=== PATIENT | male | born 1985 | race American Indian/Alaskan Native ===

== ENCOUNTER 2021-06-07 10:35 | Inpatient (IN) | payer OTHER ==
[2021-06-07] MEDS ORDERED: MORPHINE 4 MG/1 ML INJ IV ONE (11:58)
[2021-06-07] MEDS ORDERED: hydrALAZINE 20 MG/1 ML INJ IV ONE (11:58)
--- NOTE | 2021-06-07 12:05 | Emergency Department Report ---
HPI - General Chief Complaint: Weakness Time Seen by Provider: 06/07/21 11:51 - HPI HPI: This is a 35-year-old -[place]ong[place] male presents to the emergency department via EMS from home with complaint of generalized pain, generalized weakness and fatigue, and some shortness of breath. The patient is end-stage renal disease on hemodialysis on Thursday/Thursday/Thursday but admits to some noncompliance as he says that he does not have the "money to get to dialysis." Patient has missed multiple dialysis sessions and was last dialyzed at [facility] last week. The patient also has a history of diabetes and admits to noncompliance with his insulin. He had an Accu-Chek in route with EMS that was 308. Overall the patient says that he feels "sick" and describes that he has a "cold." He denies any fever, chest pain, lower extremity swelling. He has a right-sided chest port for dialysis access. He has not taken anything for symptoms prior to presentation. The patient says that he takes morphine regularly for his chronic back pains. He says that he gets dialyzed occasionally at [facility], [facility]. 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 Upon presentation to the emergency department, the patient was found to have a room air pulse ox of 82%. He was placed on 4 L via nasal cannula and went up to 94%. The patient is vaccinated against COVID-19 with the [employer] vaccine, but just got the vaccine two days ago. ED Review of Systems ROS: Stated complaint: COUGH/FLU LIKE SX/MISSED DIALYSIS Other details as noted in HPI Comment: All other systems reviewed and negative Constitutional: weakness. denies: fever Eyes: denies: eye pain, vision change ENT: denies: ear pain, throat pain Respiratory: cough, shortness of breath Cardiovascular: denies: chest pain, edema Gastrointestinal: denies: abdominal pain, vomiting Genitourinary: denies: dysuria, discharge Skin: denies: rash, lesions Neurological: denies: headache, numbness Physical Exam - Physical Exam Vital Signs: Vital Signs 06/07/21 11:01 Temperature 97.5 F L Pulse Rate 95 H Respiratory 20 Rate Blood Pressure 223/135 [Left] O2 Sat by Pulse 94 Oximetry Physical Exam: GENERAL: The patient is well-developed well-nourished. HENT: Normocephalic. Atraumatic. Patient has moist mucous membranes. EYES: Extraocular motions are intact. NECK: Supple. Trachea is midline. CHEST/LUNGS: Rhonchi heard throughout the chest. There is tachypnea and a productive sounding cough heard. There is a right-sided dialysis chest catheter in place. HEART/CARDIOVASCULAR: Regular. There is no tachycardia. There is no murmur. ABDOMEN: Abdomen is soft, nontender. Patient has normal bowel sounds. There is no abdominal distention. SKIN: Skin is warm and dry. NEURO: The patient is awake, alert, and oriented. The patient is cooperative. The patient has no focal neurologic deficits. Normal speech. MUSCULOSKELETAL: There is no tenderness or deformity. There is no limitation range of motion. ED Course Vital Signs 06/07/21 11:01 Temperature 97.5 F L Pulse Rate 95 H Respiratory 20 Rate Blood Pressure 223/135 [Left] O2 Sat by Pulse 94 Oximetry - Reevaluation(s) Reevaluation #1: 06/07/21 12:24 With the patient's complaint of a cold/upper respiratory symptoms, the hypoxia, and the chest x-ray showing some bilateral patchy opacities, the patient will be made a PUI and placed on droplet precautions and patient isolation. The chest x-ray findings may also be consistent with interstitial edema. The patient is vaccinated against COVID-19, but it is the [employer]hu [employer] Madhu vaccine. - Consultations Consultation #1: 06/07/21 12:54 I spoke to the engineering vice president on-call, Dr. Juarez. She will be happy to consult on this patient for dialysis. - Pulse Oximetry Interpretation Digit-Finger Initial Pulse Oximetry Readin O2 Sat by Pulse Oximetry: 82 Actions Taken: increased FIO2 to (5 L NC) Additional Comments: Oxygen saturation went up to 95% when placed on supplemental oxygen at 5 L via nasal cannula ED Medical Decision Making - Lab Data Result diagrams: 06/07/21 12:05 06/07/21 12:05 Lab Results 06/07/21 06/07/21 06/07/21 Range/Units 12:05 12:05 12:05 WBC 9.7 (4.5-11.0) K/mm3 RBC 3.18 L (3.65-5.03) M/mm3 Hgb 7.4 L (11.8-15.2) gm/dl Hct 23.9 L (35.5-45.6) % MCV 75 L (84-94) fl MCH 23 L (28-32) pg MCHC 31 L (32-34) % RDW 20.0 H (13.2-15.2) % Add Manual Diff Complete Total Counted 100 Seg Neuts % (Manual) 77.0 H (40.0-70.0) % Lymphocytes % (Manual) 15.0 (13.4-35.0) % Monocytes % (Manual) 5.0 (0.0-7.3) % Eosinophils % (Manual) 2.0 (0.0-4.3) % Basophils % (Manual) 1.0 (0.0-1.8) % Nucleated RBC % Not Reportable Seg Neutrophils # Man 7.5 (1.8-7.7) K/mm3 Band Neutrophils # 0.0 K/mm3 Lymphocytes # (Manual) 1.5 (1.2-5.4) K/mm3 Abs React Lymphs (Man) 0.0 K/mm3 Monocytes # (Manual) 0.5 (0.0-0.8) K/mm3 Eosinophils # (Manual) 0.2 (0.0-0.4) K/mm3 Basophils # (Manual) 0.1 (0.0-0.1) K/mm3 Metamyelocytes # 0.0 K/mm3 Myelocytes # 0.0 K/mm3 Promyelocytes # 0.0 K/mm3 Blast Cells # 0.0 K/mm3 WBC Morphology Not Reportable Hypersegmented Neuts Not Reportable Hyposegmented Neuts Not Reportable Hypogranular Neuts Not Reportable Smudge Cells Not Reportable Toxic Granulation Not Reportable Toxic Vacuolation Not Reportable Dohle Bodies Not Reportable Pelger-Huet Anomaly Not Reportable Nathan Rods Not Reportable Platelet Estimate Consistent w auto Clumped Platelets Not Reportable Plt Clumps, EDTA Not Reportable Large Platelets Not Reportable Giant Platelets Not Reportable Platelet Satelliting Not Reportable Plt Morphology Comment Not Reportable RBC Morphology Not Reportable Dimorphic RBCs Not Reportable Polychromasia Few Hypochromasia 2+ Poikilocytosis 2+ Anisocytosis Not Reportable Microcytosis 1+ Macrocytosis Not Reportable Spherocytes Few Pappenheimer Bodies Not Reportable Sickle Cells Few Target Cells 1+ Tear Drop Cells Not Reportable Ovalocytes Not Reportable Helmet Cells Not Reportable Cheek-Confluence Bodies Not Reportable [place] Rings Not Reportable Candelario Cells Not Reportable Bite Cells Not Reportable Crenated Cell Not Reportable Elliptocytes Not Reportable Acanthocytes (Spur) Not Reportable Rouleaux Not Reportable Hemoglobin C Crystals Not Reportable Schistocytes Not Reportable Malaria parasites Not Reportable Niranjan Bodies Not Reportable Hem Pathologist Commnt No PT (12.2-14.9) Sec. INR (0.87-1.13) D-Dimer (0-234) ng/mlDDU VBG pH (7.320-7.420) Sodium 140 (137-145) mmol/L Potassium 5.6 H (3.6-5.0) mmol/L Chloride 99.5 (98-107) mmol/L Carbon Dioxide 24 (22-30) mmol/L Anion Gap 22 mmol/L BUN 75 H (9-20) mg/dL Creatinine 11.5 H (0.8-1.3) mg/dL Estimated GFR 6 ml/min BUN/Creatinine Ratio 7 % Glucose 306 H (75-100) mg/dL Calcium 7.0 L (8.4-10.2) mg/dL Ferritin (30.0-300.0) ng/mL Total Bilirubin 0.30 (0.1-1.2) mg/dL AST 64 H (5-40) units/L ALT 76 H (7-56) units/L Alkaline Phosphatase 402 H (35-129) units/L Lactate Dehydrogenase (91-180) units/L C-Reactive Protein (0.00-1.30) mg/dL NT-Pro-B Natriuret Pep 80988 H (0-450) pg/mL Total Protein 6.9 (6.3-8.2) g/dL Albumin 3.7 L (3.9-5) g/dL Albumin/Globulin Ratio 1.2 % 06/07/21 06/07/21 06/07/21 Range/Units 12:05 12:05 12:26 WBC (4.5-11.0) K/mm3 RBC (3.65-5.03) M/mm3 Hgb (11.8-15.2) gm/dl Hct (35.5-45.6) % MCV (84-94) fl MCH (28-32) pg MCHC (32-34) % RDW (13.2-15.2) % Add Manual Diff Total Counted Seg Neuts % (Manual) (40.0-70.0) % Lymphocytes % (Manual) (13.4-35.0) % Monocytes % (Manual) (0.0-7.3) % Eosinophils % (Manual) (0.0-4.3) % Basophils % (Manual) (0.0-1.8) % Nucleated RBC % Seg Neutrophils # Man (1.8-7.7) K/mm3 Band Neutrophils # K/mm3 Lymphocytes # (Manual) (1.2-5.4) K/mm3 Abs React Lymphs (Man) K/mm3 Monocytes # (Manual) (0.0-0.8) K/mm3 Eosinophils # (Manual) (0.0-0.4) K/mm3 Basophils # (Manual) (0.0-0.1) K/mm3 Metamyelocytes # K/mm3 Myelocytes # K/mm3 Promyelocytes # K/mm3 Blast Cells # K/mm3 WBC Morphology Hypersegmented Neuts Hyposegmented Neuts Hypogranular Neuts Smudge Cells Toxic Granulation Toxic Vacuolation Dohle Bodies Pelger-Huet Anomaly Nathan Rods Platelet Estimate Clumped Platelets Plt Clumps, EDTA Large Platelets Giant Platelets Platelet Satelliting Plt Morphology Comment RBC Morphology Dimorphic RBCs Polychromasia Hypochromasia Poikilocytosis Anisocytosis Microcytosis Macrocytosis Spherocytes Pappenheimer Bodies Sickle Cells Target Cells Tear Drop Cells Ovalocytes Helmet Cells Cheek-Confluence Bodies [place] Rings Brandon Cells Bite Cells Crenated Cell Elliptocytes Acanthocytes (Spur) Rouleaux Hemoglobin C Crystals Schistocytes Malaria parasites Niranjan Bodies Hem Pathologist Commnt PT 14.6 (12.2-14.9) Sec. INR 1.09 (0.87-1.13) D-Dimer 2303.03 H (0-234) ng/mlDDU VBG pH 7.327 (7.320-7.420) Sodium (137-145) mmol/L Potassium (3.6-5.0) mmol/L Chloride (98-107) mmol/L Carbon Dioxide (22-30) mmol/L Anion Gap mmol/L BUN (9-20) mg/dL Creatinine (0.8-1.3) mg/dL Estimated GFR ml/min BUN/Creatinine Ratio % Glucose (75-100) mg/dL Calcium (8.4-10.2) mg/dL Ferritin (30.0-300.0) ng/mL Total Bilirubin (0.1-1.2) mg/dL AST (5-40) units/L ALT (7-56) units/L Alkaline Phosphatase (35-129) units/L Lactate Dehydrogenase (91-180) units/L C-Reactive Protein (0.00-1.30) mg/dL NT-Pro-B Natriuret Pep (0-450) pg/mL Total Protein (6.3-8.2) g/dL Albumin (3.9-5) g/dL Albumin/Globulin Ratio % 06/07/21 06/07/21 Range/Units 12:26 12:26 WBC (4.5-11.0) K/mm3 RBC (3.65-5.03) M/mm3 Hgb (11.8-15.2) gm/dl Hct (35.5-45.6) % MCV (84-94) fl MCH (28-32) pg MCHC (32-34) % RDW (13.2-15.2) % Add Manual Diff Total Counted Seg Neuts % (Manual) (40.0-70.0) % Lymphocytes % (Manual) (13.4-35.0) % Monocytes % (Manual) (0.0-7.3) % Eosinophils % (Manual) (0.0-4.3) % Basophils % (Manual) (0.0-1.8) % Nucleated RBC % Seg Neutrophils # Man (1.8-7.7) K/mm3 Band Neutrophils # K/mm3 Lymphocytes # (Manual) (1.2-5.4) K/mm3 Abs React Lymphs (Man) K/mm3 Monocytes # (Manual) (0.0-0.8) K/mm3 Eosinophils # (Manual) (0.0-0.4) K/mm3 Basophils # (Manual) (0.0-0.1) K/mm3 Metamyelocytes # K/mm3 Myelocytes # K/mm3 Promyelocytes # K/mm3 Blast Cells # K/mm3 WBC Morphology Hypersegmented Neuts Hyposegmented Neuts Hypogranular Neuts Smudge Cells Toxic Granulation Toxic Vacuolation Dohle Bodies Pelger-Huet Anomaly Nathan Rods Platelet Estimate Clumped Platelets Plt Clumps, EDTA Large Platelets Giant Platelets Platelet Satelliting Plt Morphology Comment RBC Morphology Dimorphic RBCs Polychromasia Hypochromasia Poikilocytosis Anisocytosis Microcytosis Macrocytosis Spherocytes Pappenheimer Bodies Sickle Cells Target Cells Tear Drop Cells Ovalocytes Helmet Cells Cheek-Confluence Bodies [place] Rings Candelario Cells Bite Cells Crenated Cell Elliptocytes Acanthocytes (Spur) Rouleaux Hemoglobin C Crystals Schistocytes Malaria parasites Niranjan Bodies Hem Pathologist Commnt PT (12.2-14.9) Sec. INR (0.87-1.13) D-Dimer (0-234) ng/mlDDU VBG pH (7.320-7.420) Sodium (137-145) mmol/L Potassium (3.6-5.0) mmol/L Chloride (98-107) mmol/L Carbon Dioxide (22-30) mmol/L Anion Gap mmol/L BUN (9-20) mg/dL Creatinine (0.8-1.3) mg/dL Estimated GFR ml/min BUN/Creatinine Ratio % Glucose (75-100) mg/dL Calcium (8.4-10.2) mg/dL Ferritin 444.0 H (30.0-300.0) ng/mL Total Bilirubin (0.1-1.2) mg/dL AST (5-40) units/L ALT (7-56) units/L Alkaline Phosphatase (35-129) units/L Lactate Dehydrogenase 585 H (91-180) units/L C-Reactive Protein 3.80 H (0.00-1.30) mg/dL NT-Pro-B Natriuret Pep (0-450) pg/mL Total Protein (6.3-8.2) g/dL Albumin (3.9-5) g/dL Albumin/Globulin Ratio % - EKG Data -: EKG Interpreted by Ak EKG shows normal: sinus rhythm, axis, intervals, QRS complexes, ST-T waves Rate: normal - EKG Data When compared to previous EKG there are: previous EKG unavailable Interpretation: normal EKG - Radiology Data Radiology results: image reviewed interpreted by me: Chest x-ray shows bilateral patchy opacities concerning for pneumonia, but may also represent interstitial edema. No pneumothorax. No widened mediastinum. - Medical Decision Making This patient presents to the emergency department with a complaint of intermittent shortness of breath, weakness and fatigue and a productive cough. On presentation the patient has a room air pulse ox of about 82%. He was placed on 5 L via nasal cannula and went up to about 95%. Chest x-ray shows bilateral patchy opacities concerning for pneumonia versus interstitial edema. EKG does not have any morphology consistent with ST elevation myocardial infarction. The patient's labs shows hyperkalemia with potassium 5.6, end-stage renal disease with some development of with some development of uremia, a very elevated proBNP, and the patient has elevated inflammatory markers such as LDH, D-dimer, CRP, ferritin. Patient was given IV Decadron, IV antibiotics. The patient was just vaccinated against COVID-19 about 2 days ago and therefore is not at full protection. With the hypoxia, chest x-ray findings, and his symptoms, the patient is also suspicious for having developed COVID-19. He was made a PUI and placed in droplet precautions and patient isolation. Nephrology was contacted and consulted. Patient was accepted for admission by the hospitalist, Dr. Ho. Critical Care Time: Yes Critical care time in (mins) excluding proc time.: 35 Critical care attestation.: If time is entered above; I have spent that time in minutes in the direct care of this critically ill patient, excluding procedure time. Critical care time was spent on this patient in doing his initial evaluation, multiple reevaluations, ordering interpretation of labs and imaging, IV Decadron, IV antibiotics, supplemental oxygen for the hypoxia, discussion with the nephrology service, multiple discussions with the patient. Critical Care Time: 35 minutes ED Disposition Clinical Impression: Suspected COVID-19 virus infection, Hypoxia, ESRD needing dialysis, Hyperglycemia Bilateral pneumonia Qualifiers: Pneumonia type: due to unspecified organism Lung location: unspecified part of lung Qualified Code(s): J18.9 - Pneumonia, unspecified organism Disposition: OP ADMIT IP TO THIS HOSP Is pt being admited?: Yes Condition: Serious Time of Disposition: 13:09
[2021-06-07 12:21] LABS: Hematocrit 23.9 % (35.5-45.6); Hemoglobin 7.4 gm/dl (11.8-15.2); Mean Corpuscular HGB Conc 31 % (32-34); Mean Corpuscular Volume 75 fl (84-94); Red Blood Count 3.18 M/mm3 (3.65-5.03)
--- NOTE | 2021-06-07 12:38 | XRay Report ---
CHEST 1 VIEW 06/07/2021 11:18 AM INDICATION / CLINICAL INFORMATION: SOB. COMPARISON: None available. FINDINGS: SUPPORT DEVICES: Right Vas-Cath is satisfactory in position HEART / MEDIASTINUM: No significant abnormality. LUNGS / PLEURA: Diffuse bilateral pulmonary opacities No pneumothorax. ADDITIONAL FINDINGS: No significant additional findings. IMPRESSION: Diffuse bilateral pulmonary opacities Signer Name: Ranulfo Hill MD Signed: 06/07/2021 12:33 PM Workstation Name: [id number]
[2021-06-07 12:39] LABS: Albumin 3.7 g/dL (3.9-5)
[2021-06-07 12:46] LABS: INR 1.09 (0.87-1.13)
[2021-06-07] MEDS ORDERED: cefTRIAXone/NS 1 GM/50 ML 1 GM/50 ML BAG IV ONE (12:56)
[2021-06-07] MEDS ORDERED: dexAMETHasone 4 MG/ML VIAL IV ONE (12:56)
[2021-06-07] MEDS ORDERED: AZITHROMYCIN/NS 500 MG/250 ML 500 MG/250 ML BAG IV ONE (12:57)
[2021-06-07 13:03] LABS: C-Reactive Protein 3.8 mg/dL (0.00-1.30)
[2021-06-07 15:02] LABS: Total Cells Counted 100
[2021-06-07 15:03] LABS: Hypochromasia 2+; Poikilocytosis 2+; Spherocytes Few
[2021-06-07 15:04] LABS: Platelet Estimate Consistent w Auto; Sickle Cells Few; Target Cells 1+
[2021-06-07 15:13] LABS: Platelet Count 147 K/mm3 (140-440)
[2021-06-07] MEDS ORDERED: SODIUM CHLORIDE 0.9% 100 ML IV PRN (17:00)
--- NOTE | 2021-06-07 17:01 | Consultation ---
History of Present Illness - Reason for Consult Consult date: 06/07/21 end stage renal disease - History of Present Illness Mr. Kim is a 35-year-old -[place] male w/ ESRD on HD via [facility] who presents to the ED via with complaint of fatigue, generalized pain, weakness and shortness of breath. Patient reports that he has not dialyzed in appx 1 week due to lack of transportation to dialysis. 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 Upon presentation to the emergency department, the patient was found to have a room air pulse ox of 82%. He was placed on 4 L via nasal cannula and went up to 94%. The patient reports COVID-19 vaccination ([employer]) two days ago Past History Past Medical History: diabetes, ESRD, hypertension Past Surgical History: No surgical history Social history: no significant social history Family history: no significant family history Medications and Allergies Allergies Allergy/AdvReac Type Severity Reaction Status Date / Time No Known Allergies Allergy Unverified 06/07/21 11:09 Review of Systems All systems: negative Exam - Vital Signs Vital signs: Vital Signs Temp Pulse Resp BP Pulse Ox 97.5 F L 95 H 20 223/135 94 06/07/21 11:01 06/07/21 11:01 06/07/21 11:01 06/07/21 11:01 06/07/21 11:01 - General Appearance General appearance: well-developed, well-nourished EENT: ATNC Respiratory: Clear to Ascultation Heart: regular, S1S2 Gastrointestinal: Present: normal. Absent: tenderness, distended Integumentary: no rash, warm and dry Neurologic: no focal deficit, alert and oriented x3 Psychiatric: cooperative Results - Lab Results 06/07/21 12:05 06/07/21 12:05 Most recent lab results Calcium 7.0 mg/dL (8.4-10.2) L 06/07/21 12:05 Assessment and Plan Impression: * End stage renal disease on intermittent HD * Accelerated hypertension * Acute hypoxic respiratory failure secondary to pulmonary edema vs PNA * Anemia secondary to ESRD * Hyperkalemia, mild Plan: * Hemodialysis today and tomorrow * UF as tolerated * Dose medications for renal function * Renal/HD diet * Epogen TIW prn once BP controlled * Transfuse pRBC prn HB<7
[2021-06-07 18:15] LABS: Hepatitis B Surface Antigen Non-Reactive (Negative); Hepatitis C Virus Antibody Non-Reactive (NonReactive)
--- NOTE | 2021-06-07 21:57 | History and Physical Report ---
History of Present Illness Date of examination: 06/07/21 Date of admission: 06/07/21 13:09 Chief complaint: Shortness of breath for 3 days. History of present illness: 35-year-old male with history of end-stage renal disease comes in for increasing shortness of breath. Patient is get hemodialysis for 1 week. Patient was dialyzed at [facility] last week. Patient also not taking his insulin. In the emergency room his oxygen saturation was 82%. Patient improved with 4 L of nasal cannula oxygen. Patient is vaccinated with [employer] accident 2 days ago. No fever or chills. No loss of taste. Review of Systems ROS: Stated complaint: COUGH/FLU LIKE SX/MISSED DIALYSIS Other details as noted in HPI Comment: All other systems reviewed and negative Constitutional: weakness. denies: fever Eyes: denies: eye pain, vision change ENT: denies: ear pain, throat pain Respiratory: cough, shortness of breath Cardiovascular: denies: chest pain, edema Gastrointestinal: denies: abdominal pain, vomiting Genitourinary: denies: dysuria, discharge Skin: denies: rash, lesions Neurological: denies: headache, numbness Past History Past Medical History: diabetes, ESRD, hypertension Past Surgical History: No surgical history Social history: no significant social history Family history: no significant family history Medications and Allergies Allergies Allergy/AdvReac Type Severity Reaction Status Date / Time acetaminophen [From Tylenol] Allergy Unknown Verified 06/07/21 22:31 Active Meds: Active Medications Sodium Chloride (Nacl 0.9%) 100 mls @ 999 mls/hr IV JESÚS PRN PRN Reason: Hypotension Exam - Constitutional Vitals: Temp Pulse Resp BP Pulse Ox 98.9 F 90 22 208/124 97 06/07/21 18:45 06/07/21 20:45 06/07/21 18:45 06/07/21 20:45 06/07/21 18:45 General appearance: Present: mild distress, well-nourished - EENT Eyes: Present: PERRL ENT: hearing intact, clear oral mucosa - Neck Neck: Present: supple, normal ROM - Respiratory Respiratory effort: normal Respiratory: bilateral: CTA, rales - Cardiovascular Heart rate: 98 Rhythm: regular Heart Sounds: Present: S1 & S2. Absent: rub, click - Extremities Extremities: pulses symmetrical, No edema Peripheral Pulses: within normal limits - Abdominal General gastrointestinal: Present: soft, non-tender, non-distended, normal bowel sounds Male genitourinary: Present: normal - Integumentary Integumentary: Present: clear, warm, dry - Musculoskeletal Musculoskeletal: gait normal, strength equal bilaterally - Psychiatric Psychiatric: appropriate mood/affect, intact judgment & insight - Neurologic Neurologic: CNII-XII intact, moves all extremities HEART Score - HEART Score History: Slightly suspicious Age: < 45 Risk factors: 1-2 risk factors Troponin: < normal limit - Critical Actions Critical Actions: 4-6 pts:12-16.6% risk of adverse cardiac event. Should be admitted Results - Labs CBC & Chem 7: 06/07/21 12:05 06/07/21 12:05 Labs: Laboratory Last Values WBC 9.7 K/mm3 (4.5-11.0) 06/07/21 12:05 RBC 3.18 M/mm3 (3.65-5.03) L 06/07/21 12:05 Hgb 7.4 gm/dl (11.8-15.2) L 06/07/21 12:05 Hct 23.9 % (35.5-45.6) L 06/07/21 12:05 MCV 75 fl (84-94) L 06/07/21 12:05 MCH 23 pg (28-32) L 06/07/21 12:05 MCHC 31 % (32-34) L 06/07/21 12:05 RDW 20.0 % (13.2-15.2) H 06/07/21 12:05 Plt Count 147 K/mm3 (140-440) 06/07/21 12:05 Add Manual Diff Complete 06/07/21 12:05 Total Counted 100 06/07/21 12:05 Seg Neuts % (Manual) 77.0 % (40.0-70.0) H 06/07/21 12:05 Lymphocytes % (Manual) 15.0 % (13.4-35.0) 06/07/21 12:05 Monocytes % (Manual) 5.0 % (0.0-7.3) 06/07/21 12:05 Eosinophils % (Manual) 2.0 % (0.0-4.3) 06/07/21 12:05 Basophils % (Manual) 1.0 % (0.0-1.8) 06/07/21 12:05 Nucleated RBC % Not Reportable 06/07/21 12:05 Seg Neutrophils # Man 7.5 K/mm3 (1.8-7.7) 06/07/21 12:05 Band Neutrophils # 0.0 K/mm3 06/07/21 12:05 Lymphocytes # (Manual) 1.5 K/mm3 (1.2-5.4) 06/07/21 12:05 Abs React Lymphs (Man) 0.0 K/mm3 06/07/21 12:05 Monocytes # (Manual) 0.5 K/mm3 (0.0-0.8) 06/07/21 12:05 Eosinophils # (Manual) 0.2 K/mm3 (0.0-0.4) 06/07/21 12:05 Basophils # (Manual) 0.1 K/mm3 (0.0-0.1) 06/07/21 12:05 Metamyelocytes # 0.0 K/mm3 06/07/21 12:05 Myelocytes # 0.0 K/mm3 06/07/21 12:05 Promyelocytes # 0.0 K/mm3 06/07/21 12:05 Blast Cells # 0.0 K/mm3 06/07/21 12:05 WBC Morphology Not Reportable 06/07/21 12:05 Hypersegmented Neuts Not Reportable 06/07/21 12:05 Hyposegmented Neuts Not Reportable 06/07/21 12:05 Hypogranular Neuts Not Reportable 06/07/21 12:05 Smudge Cells Not Reportable 06/07/21 12:05 Toxic Granulation Not Reportable 06/07/21 12:05 Toxic Vacuolation Not Reportable 06/07/21 12:05 Dohle Bodies Not Reportable 06/07/21 12:05 Pelger-Huet Anomaly Not Reportable 06/07/21 12:05 Nathan Rods Not Reportable 06/07/21 12:05 Platelet Estimate Consistent w auto 06/07/21 12:05 Clumped Platelets Not Reportable 06/07/21 12:05 Plt Clumps, EDTA Not Reportable 06/07/21 12:05 Large Platelets Not Reportable 06/07/21 12:05 Giant Platelets Not Reportable 06/07/21 12:05 Platelet Satelliting Not Reportable 06/07/21 12:05 Plt Morphology Comment Not Reportable 06/07/21 12:05 RBC Morphology Not Reportable 06/07/21 12:05 Dimorphic RBCs Not Reportable 06/07/21 12:05 Polychromasia Few 06/07/21 12:05 Hypochromasia 2+ 06/07/21 12:05 Poikilocytosis 2+ 06/07/21 12:05 Anisocytosis Not Reportable 06/07/21 12:05 Microcytosis 1+ 06/07/21 12:05 Macrocytosis Not Reportable 06/07/21 12:05 Spherocytes Few 06/07/21 12:05 Pappenheimer Bodies Not Reportable 06/07/21 12:05 Sickle Cells Few 06/07/21 12:05 Target Cells 1+ 06/07/21 12:05 Tear Drop Cells Not Reportable 06/07/21 12:05 Ovalocytes Not Reportable 06/07/21 12:05 Helmet Cells Not Reportable 06/07/21 12:05 Cheek-[place] Bodies Not Reportable 06/07/21 12:05 [place] Rings Not Reportable 06/07/21 12:05 Candelario Cells Not Reportable 06/07/21 12:05 Bite Cells Not Reportable 06/07/21 12:05 Crenated Cell Not Reportable 06/07/21 12:05 Elliptocytes Not Reportable 06/07/21 12:05 Acanthocytes (Spur) Not Reportable 06/07/21 12:05 Rouleaux Not Reportable 06/07/21 12:05 Hemoglobin C Crystals Not Reportable 06/07/21 12:05 Schistocytes Not Reportable 06/07/21 12:05 Malaria parasites Not Reportable 06/07/21 12:05 Niranjan Bodies Not Reportable 06/07/21 12:05 Hem Pathologist Commnt No 06/07/21 12:05 PT 14.6 Sec. (12.2-14.9) 06/07/21 12:05 INR 1.09 (0.87-1.13) 06/07/21 12:05 D-Dimer 2303.03 ng/mlDDU (0-234) H 06/07/21 12:26 VBG pH 7.327 (7.320-7.420) 06/07/21 12:05 Sodium 140 mmol/L (137-145) 06/07/21 12:05 Potassium 5.6 mmol/L (3.6-5.0) H 06/07/21 12:05 Chloride 99.5 mmol/L (98-107) 06/07/21 12:05 Carbon Dioxide 24 mmol/L (22-30) 06/07/21 12:05 Anion Gap 22 mmol/L 06/07/21 12:05 BUN 75 mg/dL (9-20) H 06/07/21 12:05 Creatinine 11.5 mg/dL (0.8-1.3) H 06/07/21 12:05 Estimated GFR 6 ml/min 06/07/21 12:05 BUN/Creatinine Ratio 7 % 06/07/21 12:05 Glucose 306 mg/dL (75-100) H 06/07/21 12:05 Calcium 7.0 mg/dL (8.4-10.2) L 06/07/21 12:05 Ferritin 444.0 ng/mL (30.0-300.0) H 06/07/21 12:26 Total Bilirubin 0.30 mg/dL (0.1-1.2) 06/07/21 12:05 AST 64 units/L (5-40) H 06/07/21 12:05 ALT 76 units/L (7-56) H 06/07/21 12:05 Alkaline Phosphatase 402 units/L (35-129) H 06/07/21 12:05 Lactate Dehydrogenase 585 units/L (91-180) H 06/07/21 12:26 C-Reactive Protein 3.80 mg/dL (0.00-1.30) H 06/07/21 12:26 NT-Pro-B Natriuret Pep 98942 pg/mL (0-450) H 06/07/21 12:05 Total Protein 6.9 g/dL (6.3-8.2) 06/07/21 12:05 Albumin 3.7 g/dL (3.9-5) L 06/07/21 12:05 Albumin/Globulin Ratio 1.2 % 06/07/21 12:05 Hepatitis A IgM Ab Non-reactive (NonReactive) 06/07/21 17:27 Hep Bs Antigen Non-reactive (Negative) 07/30/21 17:27 Hep B Core IgM Ab Non-reactive (NonReactive) 06/07/21 17:27 Hepatitis C Antibody Non-reactive (NonReactive) 06/07/21 17:27 - Imaging and Cardiology EKG: report reviewed (Sinus tachycardia normal ST-T waves) Imaging and Cardiology: Chest x-ray Diffuse bilateral pulmonary opacities Assessment and Plan Advance Directives: Yes (Full code) VTE prophylaxis?: Chemical Plan of care discussed with patient/family: Yes - Patient Problems (1) Acute respiratory failure with hypoxia Current Visit: Yes Status: Acute Plan to address problem: Patient on 4 L nasal cannula oxygen Possible volume overload Coronavirus PCR to be ruled out Patient missed hemodialysis for 1 week (2) Acute exacerbation of CHF (congestive heart failure) Current Visit: Yes Status: Acute Qualifiers: Heart failure type: combined systolic and diastolic Qualified Code(s): I50.43 - Acute on chronic combined systolic (congestive) and diastolic (congestive) heart failure Plan to address problem: Secondary to volume overload Needs emergent hemodialysis and increased ultrafiltration (3) ESRD needing dialysis Current Visit: Yes Status: Chronic Plan to address problem: Nephrology on-call was consulted Interval dialysis (4) Suspected COVID-19 virus infection Current Visit: Yes Status: Acute Plan to address problem: Coronavirus PCR requested IV Decadron 8 mg being given in the meantime (5) Hypertension Current Visit: Yes Status: Chronic Qualifiers: Hypertension type: primary hypertension Qualified Code(s): I10 - Essential (primary) hypertension Plan to address problem: Continue antihypertensives (6) DVT prophylaxis Current Visit: Yes Status: Acute Plan to address problem: On heparin and GI prophylaxis
[2021-06-07] MEDS ORDERED: ACETAMINOPHEN 325 MG TAB PO PRN (22:02)
[2021-06-07] MEDS ORDERED: METOCLOPRAMIDE 10 MG/2 ML INJ IV PRN ×2 (22:02→23:54)
[2021-06-07] MEDS ORDERED: oxyCODONE /ACETAMINOPHEN 5-325MG TAB PO PRN (22:02)
[2021-06-07] MEDS ORDERED: ONDANSETRON 4 MG/2 ML INJ IV PRN (22:02)
[2021-06-07] MEDS: HEPARIN 5,000 UNIT/1 ML VIAL SUB-Q SCH (22:15)
[2021-06-08] MEDS: hydrALAZINE 25 MG TAB PO SCH ×4 (01:22→23:57)
[2021-06-08] MEDS: carvediloL 12.5 MG TAB PO SCH ×3 (01:22→23:59)
[2021-06-08] MEDS: HYDROmorphone 1 MG/1 ML INJ IV PRN ×4 (01:25→21:15)
[2021-06-08] MEDS ORDERED: hydrALAZINE 20 MG/1 ML INJ IV ONE ×2 (04:47→19:50)
[2021-06-08] MEDS: INSULIN LISPRO 100 UNIT/ML SUB-Q SCH ×4 (08:15→21:22)
[2021-06-08 08:26] LABS: Hematocrit 20.5 % (35.5-45.6); Hemoglobin 6.5 gm/dl (11.8-15.2); Mean Corpuscular HGB Conc 32 % (32-34); Mean Corpuscular Volume 74 fl (84-94); Red Blood Count 2.77 M/mm3 (3.65-5.03)
[2021-06-08] MEDS ORDERED: DEXTROSE 50% IN WATER (25GM) 50 ML SYRINGE IV PRN (08:30)
[2021-06-08 09:11] LABS: Albumin 3.1 g/dL (3.9-5); Calcium 7.3 mg/dL (8.4-10.2)
[2021-06-08] MEDS: AZITHROMYCIN/NS 500 MG/250 ML 500 MG/250 ML BAG IV SCH (10:03)
[2021-06-08] MEDS: dexAMETHasone 4 MG/ML VIAL IV SCH (10:11)
[2021-06-08] MEDS: FAMOTIDINE 10 MG TAB PO SCH (10:11)
[2021-06-08] MEDS: cefTRIAXone/NS 1 GM/50 ML 1 GM/50 ML BAG IV SCH (10:11)
[2021-06-08] MEDS: HEPARIN 5,000 UNIT/1 ML VIAL SUB-Q SCH (10:12)
--- NOTE | 2021-06-08 10:14 | Progress Note ---
Assessment and Plan Impression: * End stage renal disease on intermittent HD * Accelerated hypertension * Acute hypoxic respiratory failure secondary to pulmonary edema vs PNA * Anemia secondary to ESRD * Hyperkalemia, mild * Medical noncompliance Plan: * Patient is s/p HD yesterday - UF as tolerated * Hemodialysis today * Pain management per primary team * Hb 6.8 - Rec transfusion of pRBC prn HB< 7 * Dose medications for renal function * Renal/HD diet * Resume Epogen as BP controlled Subjective Date of service: 06/08/21 Interval history: Patient reports SOB improved but not at baseline. Also c/o back pain. Tolerating po. Denies N/V Objective - Vital Signs Vital signs: Vital Signs - 12hr 06/07/21 06/08/21 06/08/21 22:18 01:13 01:16 Temperature 98.9 F 98.2 F Pulse Rate 89 104 H Respiratory 18 18 Rate Blood Pressure 201/111 Blood Pressure 206/126 [Left] O2 Sat by Pulse 85 93 Oximetry O2 Sat by Pulse 97 Oximetry [ Posterior Bilateral] 06/08/21 06/08/21 06/08/21 01:22 02:16 04:40 Temperature 98.3 F Pulse Rate 104 H 99 H Respiratory 18 20 Rate Blood Pressure 206/126 Blood Pressure 186/117 [Left] O2 Sat by Pulse 92 95 Oximetry O2 Sat by Pulse Oximetry [ Posterior Bilateral] 06/08/21 05:10 Temperature Pulse Rate 90 Respiratory Rate Blood Pressure 188/117 Blood Pressure [Left] O2 Sat by Pulse Oximetry O2 Sat by Pulse Oximetry [ Posterior Bilateral] - General Appearance General appearance: well-developed, well-nourished EENT: ATNC Respiratory: Present: Other (unable to evaluate - isolation stethoscope not available) Cardiology: other (unable to evaluate - isolation stethoscope not available) Psychiatric: cooperative - Lab 06/08/21 07:17 06/08/21 07:17 Most recent lab results Calcium 7.3 mg/dL (8.4-10.2) L 06/08/21 07:17 Medications & Allergies - Medications Allergies/Adverse Reactions: Allergies acetaminophen [From Tylenol] Allergy (Verified 06/07/21 22:31) Unknown Home Medications: Home Medications Medication Instructions Recorded Confirmed Last Taken Type No Known Home Medications [No 06/08/21 06/08/21 Unknown History Reported Home Medications] Active Medications: Generic Name Dose Route Start Last Admin Trade Name Louis PRN Reason Stop Dose Admin Acetaminophen 650 mg 06/07/21 22:02 Acetaminophen 325 Mg Tab PO Q4H PRN Pain MILD(1-3)/Fever >100.5/GONSALES Carvedilol 12.5 mg 06/07/21 23:00 06/08/21 10:11 Carvedilol 12.5 Mg Tab PO 12.5 mg BID JULIANO Administration Dexamethasone 8 mg 06/08/21 10:00 06/08/21 10:11 Dexamethasone 4 Mg/Ml Vial IV 8 mg Q24H JULIANO Administration Dextrose 50 ml 06/08/21 08:30 Dextrose 50% In Water (25gm) 50 Ml Syringe IV Q30MIN PRN Hypoglycemia Protocol Famotidine 10 mg 06/08/21 10:00 06/08/21 10:11 Famotidine 10 Mg Tab PO 10 mg BID JULIANO Administration Heparin Sodium (Porcine) 5,000 unit 06/07/21 22:15 06/08/21 10:12 Heparin 5,000 Unit/1 Ml Vial SUB-Q 5,000 unit Q12HR JULIANO Administration Hydralazine HCl 50 mg 06/07/21 23:00 06/08/21 06:47 Hydralazine 25 Mg Tab PO Not Given Q8HR JULIANO Hydromorphone HCl 0.5 mg 06/07/21 22:02 06/08/21 01:25 Hydromorphone 1 Mg/1 Ml Inj IV 0.5 mg Q3H PRN Administration Pain , Severe (7-10) Sodium Chloride 100 mls @ 999 mls/hr 06/07/21 17:00 Nacl 0.9% IV JESÚS PRN Hypotension Azithromycin 500 mg in 250 mls @ 250 mls/hr 06/08/21 10:00 06/08/21 10:03 Zithromax/Ns IV 250 mls/hr Q24H JULIANO Administration Ceftriaxone Sodium 1 gm in 50 mls @ 100 mls/hr 06/08/21 10:00 06/08/21 10:11 Rocephin/Ns 1 Gm/50 Ml IV 100 mls/hr Q24H JULIANO Administration Protocol Insulin Human Lispro 0 unit 06/08/21 08:30 06/08/21 08:15 Insulin Lispro 100 Unit/Ml SUB-Q 10 unit ACHS JULIANO Administration Protocol Metoclopramide HCl 2.5 mg 06/07/21 23:54 Metoclopramide 10 Mg/2 Ml Inj IV Q6H PRN Nausea And Vomiting Ondansetron HCl 4 mg 06/07/21 22:02 Ondansetron 4 Mg/2 Ml Inj IV Q8H PRN Nausea And Vomiting Oxycodone/Acetaminophen 1 tab 06/07/21 22:02 Oxycodone /Acetaminophen 5-325mg Tab PO Q6H PRN Pain, Moderate (4-6) Sodium Chloride 10 ml 06/08/21 10:00 06/08/21 10:12 Sodium Chloride 0.9% 10 Ml Flush Syringe IV 10 ml BID JULIANO Administration Sodium Chloride 10 ml 06/07/21 22:02 Sodium Chloride 0.9% 10 Ml Flush Syringe IV PRN PRN LINE FLUSH
[2021-06-08] MEDS ORDERED: INSULIN LISPRO 100 UNIT/ML SUB-Q SCH (12:00)
--- NOTE | 2021-06-08 12:05 | Progress Note ---
Assessment and Plan - Patient Problems (1) Acute exacerbation of CHF (congestive heart failure) Current Visit: Yes Status: Acute Qualifiers: Heart failure type: combined systolic and diastolic Qualified Code(s): I50.43 - Acute on chronic combined systolic (congestive) and diastolic (congestive) heart failure Plan to address problem: Strict I/O, afterload reduction, daily weight, low-sodium diet, blood pressure control, supplemental oxygen, pulse oximetry (2) Acute respiratory failure with hypoxia Current Visit: Yes Status: Acute Plan to address problem: Supplemental oxygen, pulse oximetry, chest x-ray, (3) Suspected COVID-19 virus infection Current Visit: Yes Status: Acute Plan to address problem: Coronavirus protocol: Coronavirus PCR ordered and is pending at this time (4) DVT prophylaxis Current Visit: Yes Status: Acute Plan to address problem: SCD to bilateral lower extremities while in bed, prophylactic anticoagulation History Interval history: 35 YO Male with ESRD on HD, Noncompliance, acute hypoxemic respiratory failure suspected secondary to coronavirus infection versus fluid overload, accelerated hypertension. Patient resting comfortably. No reported nursing events. Patient denies pain. Hospitalist Physical - Constitutional Vitals: Temp Pulse Resp BP Pulse Ox 98.3 F 90 20 188/117 100 06/08/21 04:40 06/08/21 05:10 06/08/21 04:40 06/08/21 05:10 06/08/21 11:39 General appearance: Present: mild distress, well-nourished - EENT Eyes: Present: PERRL, EOM intact ENT: hearing intact - Neck Neck: Present: supple - Respiratory Respiratory effort: labored Respiratory: bilateral: diminished, rales - Cardiovascular Rhythm: regular Heart Sounds: Present: S1 & S2 - Extremities Extremities: no ischemia Extremity abnormal: edema Peripheral Pulses: within normal limits - Abdominal General gastrointestinal: soft, non-tender, non-distended - Integumentary Integumentary: Present: clear, dry - Psychiatric Psychiatric: appropriate mood/affect, cooperative - Neurologic Neurologic: CNII-XII intact HEART Score - HEART Score Age: < 45 Risk factors: 1-2 risk factors Troponin: < normal limit - Critical Actions Critical Actions: 4-6 pts:12-16.6% risk of adverse cardiac event. Should be admitted Results - Labs CBC & Chem 7: 06/08/21 07:17 06/08/21 07:17 Labs: Laboratory Last Values WBC 9.7 K/mm3 (4.5-11.0) 06/08/21 07:17 RBC 2.77 M/mm3 (3.65-5.03) L 06/08/21 07:17 Hgb 6.5 gm/dl (11.8-15.2) L 06/08/21 07:17 Hct 20.5 % (35.5-45.6) L 06/08/21 07:17 MCV 74 fl (84-94) L 06/08/21 07:17 MCH 24 pg (28-32) L 06/08/21 07:17 MCHC 32 % (32-34) 06/08/21 07:17 RDW 20.0 % (13.2-15.2) H 06/08/21 07:17 Plt Count 147 K/mm3 (140-440) 06/07/21 12:05 Add Manual Diff Complete 06/07/21 12:05 Total Counted 100 06/07/21 12:05 Seg Neuts % (Manual) 77.0 % (40.0-70.0) H 06/07/21 12:05 Lymphocytes % (Manual) 15.0 % (13.4-35.0) 06/07/21 12:05 Monocytes % (Manual) 5.0 % (0.0-7.3) 06/07/21 12:05 Eosinophils % (Manual) 2.0 % (0.0-4.3) 06/07/21 12:05 Basophils % (Manual) 1.0 % (0.0-1.8) 06/07/21 12:05 Nucleated RBC % Not Reportable 06/07/21 12:05 Seg Neutrophils # Man 7.5 K/mm3 (1.8-7.7) 06/07/21 12:05 Band Neutrophils # 0.0 K/mm3 06/07/21 12:05 Lymphocytes # (Manual) 1.5 K/mm3 (1.2-5.4) 06/07/21 12:05 Abs React Lymphs (Man) 0.0 K/mm3 06/07/21 12:05 Monocytes # (Manual) 0.5 K/mm3 (0.0-0.8) 06/07/21 12:05 Eosinophils # (Manual) 0.2 K/mm3 (0.0-0.4) 06/07/21 12:05 Basophils # (Manual) 0.1 K/mm3 (0.0-0.1) 06/07/21 12:05 Metamyelocytes # 0.0 K/mm3 06/07/21 12:05 Myelocytes # 0.0 K/mm3 06/07/21 12:05 Promyelocytes # 0.0 K/mm3 06/07/21 12:05 Blast Cells # 0.0 K/mm3 06/07/21 12:05 WBC Morphology Not Reportable 06/07/21 12:05 Hypersegmented Neuts Not Reportable 06/07/21 12:05 Hyposegmented Neuts Not Reportable 06/07/21 12:05 Hypogranular Neuts Not Reportable 06/07/21 12:05 Smudge Cells Not Reportable 06/07/21 12:05 Toxic Granulation Not Reportable 06/07/21 12:05 Toxic Vacuolation Not Reportable 06/07/21 12:05 Dohle Bodies Not Reportable 06/07/21 12:05 Pelger-Huet Anomaly Not Reportable 06/07/21 12:05 Nathan Rods Not Reportable 06/07/21 12:05 Platelet Estimate Consistent w auto 06/07/21 12:05 Clumped Platelets Not Reportable 06/07/21 12:05 Plt Clumps, EDTA Not Reportable 06/07/21 12:05 Large Platelets Not Reportable 06/07/21 12:05 Giant Platelets Not Reportable 06/07/21 12:05 Platelet Satelliting Not Reportable 06/07/21 12:05 Plt Morphology Comment Not Reportable 06/07/21 12:05 RBC Morphology Not Reportable 06/07/21 12:05 Dimorphic RBCs Not Reportable 06/07/21 12:05 Polychromasia Few 06/07/21 12:05 Hypochromasia 2+ 06/07/21 12:05 Poikilocytosis 2+ 06/07/21 12:05 Anisocytosis Not Reportable 06/07/21 12:05 Microcytosis 1+ 06/07/21 12:05 Macrocytosis Not Reportable 06/07/21 12:05 Spherocytes Few 06/07/21 12:05 Pappenheimer Bodies Not Reportable 06/07/21 12:05 Sickle Cells Few 06/07/21 12:05 Target Cells 1+ 06/07/21 12:05 Tear Drop Cells Not Reportable 06/07/21 12:05 Ovalocytes Not Reportable 06/07/21 12:05 Helmet Cells Not Reportable 06/07/21 12:05 Cheek-[place] Bodies Not Reportable 06/07/21 12:05 [place] Rings Not Reportable 06/07/21 12:05 Candelario Cells Not Reportable 06/07/21 12:05 Bite Cells Not Reportable 06/07/21 12:05 Crenated Cell Not Reportable 06/07/21 12:05 Elliptocytes Not Reportable 06/07/21 12:05 Acanthocytes (Spur) Not Reportable 06/07/21 12:05 Rouleaux Not Reportable 06/07/21 12:05 Hemoglobin C Crystals Not Reportable 06/07/21 12:05 Schistocytes Not Reportable 06/07/21 12:05 Malaria parasites Not Reportable 06/07/21 12:05 Niranjan Bodies Not Reportable 06/07/21 12:05 Hem Pathologist Commnt No 06/07/21 12:05 PT 14.6 Sec. (12.2-14.9) 06/07/21 12:05 INR 1.09 (0.87-1.13) 06/07/21 12:05 D-Dimer 2303.03 ng/mlDDU (0-234) H 06/07/21 12:26 VBG pH 7.327 (7.320-7.420) 06/07/21 12:05 Sodium 138 mmol/L (137-145) 06/08/21 07:17 Potassium 4.5 mmol/L (3.6-5.0) 06/08/21 07:17 Chloride 97.1 mmol/L (98-107) L 06/08/21 07:17 Carbon Dioxide 26 mmol/L (22-30) 06/08/21 07:17 Anion Gap 19 mmol/L 06/08/21 07:17 BUN 49 mg/dL (9-20) H 06/08/21 07:17 Creatinine 7.8 mg/dL (0.8-1.3) H 06/08/21 07:17 Estimated GFR 10 ml/min 06/08/21 07:17 BUN/Creatinine Ratio 6 % 06/08/21 07:17 Glucose 419 mg/dL (75-100) H 06/08/21 07:17 POC Glucose 246 mg/dL (70-105) H 06/08/21 11:39 Hemoglobin A1c 9.7 % (4-6) H 06/08/21 07:17 Calcium 7.3 mg/dL (8.4-10.2) L 06/08/21 07:17 Ferritin 444.0 ng/mL (30.0-300.0) H 06/07/21 12:26 Total Bilirubin 0.20 mg/dL (0.1-1.2) 06/08/21 07:17 AST 23 units/L (5-40) 06/08/21 07:17 ALT 48 units/L (7-56) 06/08/21 07:17 Alkaline Phosphatase 312 units/L (35-129) H 06/08/21 07:17 Lactate Dehydrogenase 585 units/L (91-180) H 06/07/21 12:26 C-Reactive Protein 3.80 mg/dL (0.00-1.30) H 06/07/21 12:26 NT-Pro-B Natriuret Pep 83205 pg/mL (0-450) H 06/07/21 12:05 Total Protein 5.7 g/dL (6.3-8.2) L 06/08/21 07:17 Albumin 3.1 g/dL (3.9-5) L 06/08/21 07:17 Albumin/Globulin Ratio 1.2 % 06/08/21 07:17 Hepatitis A IgM Ab Non-reactive (NonReactive) 06/07/21 17:27 Hep Bs Antigen Non-reactive (Negative) 06/07/21 17:27 Hep B Core IgM Ab Non-reactive (NonReactive) 06/07/21 17:27 Hepatitis C Antibody Non-reactive (NonReactive) 06/07/21 17:27 Dixon/IV: Voiding Method Toilet Active Medications - Current Medications Current Medications: Generic Name Dose Route Start Last Admin Trade Name Freq PRN Reason Stop Dose Admin Acetaminophen 650 mg 06/07/21 22:02 Acetaminophen 325 Mg Tab PO Q4H PRN Pain MILD(1-3)/Fever >100.5/GONSALES Carvedilol 12.5 mg 06/07/21 23:00 06/08/21 10:11 Carvedilol 12.5 Mg Tab PO 12.5 mg BID JULIANO Administration Dexamethasone 8 mg 06/08/21 10:00 06/08/21 10:11 Dexamethasone 4 Mg/Ml Vial IV 8 mg Q24H JULIANO Administration Dextrose 50 ml 06/08/21 08:30 Dextrose 50% In Water (25gm) 50 Ml Syringe IV Q30MIN PRN Hypoglycemia Protocol Famotidine 10 mg 06/08/21 10:00 06/08/21 10:11 Famotidine 10 Mg Tab PO 10 mg BID JULIANO Administration Heparin Sodium (Porcine) 5,000 unit 06/07/21 22:15 06/08/21 10:12 Heparin 5,000 Unit/1 Ml Vial SUB-Q 5,000 unit Q12HR JULIANO Administration Hydralazine HCl 50 mg 06/07/21 23:00 06/08/21 06:47 Hydralazine 25 Mg Tab PO Not Given Q8HR JULIANO Hydromorphone HCl 0.5 mg 06/07/21 22:02 06/08/21 01:25 Hydromorphone 1 Mg/1 Ml Inj IV 0.5 mg Q3H PRN Administration Pain , Severe (7-10) Sodium Chloride 100 mls @ 999 mls/hr 06/07/21 17:00 Nacl 0.9% IV JESÚS PRN Hypotension Azithromycin 500 mg in 250 mls @ 250 mls/hr 06/08/21 10:00 06/08/21 10:03 Zithromax/Ns IV 250 mls/hr Q24H JULIANO Administration Ceftriaxone Sodium 1 gm in 50 mls @ 100 mls/hr 06/08/21 10:00 06/08/21 10:11 Rocephin/Ns 1 Gm/50 Ml IV 100 mls/hr Q24H JULIANO Administration Protocol Insulin Human Lispro 0 unit 06/08/21 08:30 06/08/21 08:15 Insulin Lispro 100 Unit/Ml SUB-Q 10 unit ACHS JULIANO Administration Protocol Metoclopramide HCl 2.5 mg 06/07/21 23:54 Metoclopramide 10 Mg/2 Ml Inj IV Q6H PRN Nausea And Vomiting Ondansetron HCl 4 mg 06/07/21 22:02 Ondansetron 4 Mg/2 Ml Inj IV Q8H PRN Nausea And Vomiting Oxycodone/Acetaminophen 1 tab 06/07/21 22:02 Oxycodone /Acetaminophen 5-325mg Tab PO Q6H PRN Pain, Moderate (4-6) Sodium Chloride 10 ml 06/08/21 10:00 06/08/21 10:12 Sodium Chloride 0.9% 10 Ml Flush Syringe IV 10 ml BID JULIANO Administration Sodium Chloride 10 ml 06/07/21 22:02 Sodium Chloride 0.9% 10 Ml Flush Syringe IV PRN PRN LINE FLUSH
[2021-06-08 13:39] LABS: Anisocytosis 2+; Band Neutrophils # (Manual) 0.1 K/mm3; Hypochromasia 2+; Platelet Estimate Consistent w Auto; Total Cells Counted 100
[2021-06-08 13:40] LABS: Platelet Count 126 K/mm3 (140-440)
[2021-06-08] MEDS ORDERED: SODIUM CHLORIDE 0.9% 100 ML IV PRN (14:30)
[2021-06-08] MEDS ORDERED: EPOETIN ALFA-EPBX 20,000 UNIT/1 ML VIAL IV PRN (14:30)
[2021-06-08] MEDS ORDERED: hydrALAZINE 20 MG/1 ML INJ IV PRN (20:59)
[2021-06-08] MEDS: VALSARTAN 160MG TAB PO SCH (23:50)
[2021-06-08] MEDS: amLODIPine 10 MG TAB PO SCH (23:52)
[2021-06-09] MEDS: KETOROLAC 30 MG/1 ML INJ IV SCH ×4 (00:01→18:25)
[2021-06-09] MEDS: HYDROmorphone 1 MG/1 ML INJ IV PRN ×4 (03:32→21:19)
[2021-06-09] MEDS: hydrALAZINE 25 MG TAB PO SCH ×3 (06:17→23:56)
[2021-06-09] MEDS: INSULIN LISPRO 100 UNIT/ML SUB-Q SCH ×4 (07:57→23:58)
[2021-06-09] MEDS: HEPARIN 5,000 UNIT/1 ML VIAL SUB-Q SCH ×3 (10:00→23:57)
[2021-06-09] MEDS: cefTRIAXone/NS 1 GM/50 ML 1 GM/50 ML BAG IV SCH (10:09)
[2021-06-09] MEDS: AZITHROMYCIN/NS 500 MG/250 ML 500 MG/250 ML BAG IV SCH (10:10)
[2021-06-09] MEDS: FAMOTIDINE 10 MG TAB PO SCH ×3 (10:11→23:55)
[2021-06-09] MEDS: amLODIPine 10 MG TAB PO SCH (10:11)
[2021-06-09] MEDS: VALSARTAN 160MG TAB PO SCH ×2 (10:11→23:55)
[2021-06-09] MEDS: carvediloL 12.5 MG TAB PO SCH ×2 (10:12→23:56)
[2021-06-09] MEDS: dexAMETHasone 4 MG/ML VIAL IV SCH (10:22)
--- NOTE | 2021-06-09 13:10 | Progress Note ---
Assessment and Plan - Patient Problems (1) Acute exacerbation of CHF (congestive heart failure) Current Visit: Yes Status: Acute Qualifiers: Heart failure type: combined systolic and diastolic Qualified Code(s): I50.43 - Acute on chronic combined systolic (congestive) and diastolic (congestive) heart failure Plan to address problem: Strict I/O, afterload reduction, daily weight, low-sodium diet, blood pressure control, supplemental oxygen, pulse oximetry (2) ESRD needing dialysis Current Visit: Yes Status: Chronic Plan to address problem: Dialysis as per renal team, discharge planning pending repeat dialysis as per renal team recommendations. (3) Acute respiratory failure with hypoxia Current Visit: Yes Status: Acute Plan to address problem: Supplemental oxygen, pulse oximetry, chest x-ray, (4) Suspected COVID-19 virus infection Current Visit: Yes Status: Acute Plan to address problem: Coronavirus PCR negative (5) DVT prophylaxis Current Visit: Yes Status: Acute Plan to address problem: SCD to bilateral lower extremities while in bed, prophylactic anticoagulation History Interval history: 35 YO Male with ESRD on HD, Noncompliance, acute hypoxemic respiratory failure suspected secondary fluid overload, accelerated hypertension. Coronavirus PCR negative. Patient resting comfortably. No reported nursing events. Patient denies pain. Hospitalist Physical - Constitutional Vitals: Temp Pulse Resp BP Pulse Ox 98 F 89 16 164/102 97 06/08/21 20:51 06/09/21 06:17 06/08/21 20:51 06/09/21 06:17 06/09/21 10:32 General appearance: Present: mild distress, well-nourished - EENT Eyes: Present: PERRL, EOM intact ENT: hearing intact - Neck Neck: Present: supple - Respiratory Respiratory effort: labored Respiratory: bilateral: diminished - Cardiovascular Rhythm: regular Heart Sounds: Present: S1 & S2 - Extremities Extremities: no ischemia Peripheral Pulses: within normal limits - Abdominal General gastrointestinal: soft, non-tender, non-distended - Integumentary Integumentary: Present: clear, dry - Psychiatric Psychiatric: appropriate mood/affect, cooperative - Neurologic Neurologic: CNII-XII intact HEART Score - HEART Score Age: < 45 Risk factors: 1-2 risk factors Troponin: < normal limit - Critical Actions Critical Actions: 4-6 pts:12-16.6% risk of adverse cardiac event. Should be admitted Results - Labs CBC & Chem 7: 06/08/21 07:17 06/08/21 07:17 Labs: Laboratory Last Values WBC 9.7 K/mm3 (4.5-11.0) 06/08/21 07:17 RBC 2.77 M/mm3 (3.65-5.03) L 06/08/21 07:17 Hgb 6.5 gm/dl (11.8-15.2) L 06/08/21 07:17 Hct 20.5 % (35.5-45.6) L 06/08/21 07:17 MCV 74 fl (84-94) L 06/08/21 07:17 MCH 24 pg (28-32) L 06/08/21 07:17 MCHC 32 % (32-34) 06/08/21 07:17 RDW 20.0 % (13.2-15.2) H 06/08/21 07:17 Plt Count 126 K/mm3 (140-440) L 06/08/21 07:17 Add Manual Diff Complete 06/08/21 07:17 Total Counted 100 06/08/21 07:17 Seg Neuts % (Manual) 79.0 % (40.0-70.0) H 06/08/21 07:17 Band Neutrophils % 1.0 % 06/08/21 07:17 Lymphocytes % (Manual) 16.0 % (13.4-35.0) 06/08/21 07:17 Monocytes % (Manual) 4.0 % (0.0-7.3) 06/08/21 07:17 Eosinophils % (Manual) 2.0 % (0.0-4.3) 06/07/21 12:05 Basophils % (Manual) 1.0 % (0.0-1.8) 06/07/21 12:05 Nucleated RBC % Not Reportable 06/08/21 07:17 Seg Neutrophils # Man 7.7 K/mm3 (1.8-7.7) 06/08/21 07:17 Band Neutrophils # 0.1 K/mm3 06/08/21 07:17 Lymphocytes # (Manual) 1.6 K/mm3 (1.2-5.4) 06/08/21 07:17 Abs React Lymphs (Man) 0.0 K/mm3 06/08/21 07:17 Monocytes # (Manual) 0.4 K/mm3 (0.0-0.8) 06/08/21 07:17 Eosinophils # (Manual) 0.0 K/mm3 (0.0-0.4) 06/08/21 07:17 Basophils # (Manual) 0.0 K/mm3 (0.0-0.1) 06/08/21 07:17 Metamyelocytes # 0.0 K/mm3 06/08/21 07:17 Myelocytes # 0.0 K/mm3 06/08/21 07:17 Promyelocytes # 0.0 K/mm3 06/08/21 07:17 Blast Cells # 0.0 K/mm3 06/08/21 07:17 WBC Morphology Not Reportable 06/08/21 07:17 Hypersegmented Neuts Not Reportable 06/08/21 07:17 Hyposegmented Neuts Not Reportable 06/08/21 07:17 Hypogranular Neuts Not Reportable 06/08/21 07:17 Smudge Cells Not Reportable 06/08/21 07:17 Toxic Granulation Not Reportable 06/08/21 07:17 Toxic Vacuolation Not Reportable 06/08/21 07:17 Dohle Bodies Not Reportable 06/08/21 07:17 Pelger-Huet Anomaly Not Reportable 06/08/21 07:17 Nathan Rods Not Reportable 06/08/21 07:17 Platelet Estimate Consistent w auto 06/08/21 07:17 Clumped Platelets Not Reportable 06/08/21 07:17 Plt Clumps, EDTA Not Reportable 06/08/21 07:17 Large Platelets Not Reportable 06/08/21 07:17 Giant Platelets Not Reportable 06/08/21 07:17 Platelet Satelliting Not Reportable 06/08/21 07:17 Plt Morphology Comment Not Reportable 06/08/21 07:17 RBC Morphology Not Reportable 06/08/21 07:17 Dimorphic RBCs Not Reportable 06/08/21 07:17 Polychromasia Not Reportable 06/08/21 07:17 Hypochromasia 2+ 06/08/21 07:17 Poikilocytosis Not Reportable 06/08/21 07:17 Anisocytosis 2+ 06/08/21 07:17 Microcytosis Not Reportable 06/08/21 07:17 Macrocytosis Not Reportable 06/08/21 07:17 Spherocytes Not Reportable 06/08/21 07:17 Pappenheimer Bodies Not Reportable 06/08/21 07:17 Sickle Cells Not Reportable 06/08/21 07:17 Target Cells Not Reportable 06/08/21 07:17 Tear Drop Cells Not Reportable 06/08/21 07:17 Ovalocytes Not Reportable 06/08/21 07:17 Helmet Cells Not Reportable 06/08/21 07:17 Che[place] Bodies Not Reportable 06/08/21 07:17 [place] Rings Not Reportable 06/08/21 07:17 [place] Cells Not Reportable 06/08/21 07:17 Bite Cells Not Reportable 06/08/21 07:17 Crenated Cell Not Reportable 06/08/21 07:17 Elliptocytes Not Reportable 06/08/21 07:17 Acanthocytes (Spur) Not Reportable 06/08/21 07:17 Rouleaux Not Reportable 06/08/21 07:17 Hemoglobin C Crystals Not Reportable 06/08/21 07:17 Schistocytes Not Reportable 06/08/21 07:17 Malaria parasites Not Reportable 06/08/21 07:17 Niranjan Bodies Not Reportable 06/08/21 07:17 Hem Pathologist Commnt No 06/08/21 07:17 PT 14.6 Sec. (12.2-14.9) 06/07/21 12:05 INR 1.09 (0.87-1.13) 06/07/21 12:05 D-Dimer 2303.03 ng/mlDDU (0-234) H 06/07/21 12:26 VBG pH 7.327 (7.320-7.420) 06/07/21 12:05 Sodium 138 mmol/L (137-145) 06/08/21 07:17 Potassium 4.5 mmol/L (3.6-5.0) 06/08/21 07:17 Chloride 97.1 mmol/L (98-107) L 06/08/21 07:17 Carbon Dioxide 26 mmol/L (22-30) 06/08/21 07:17 Anion Gap 19 mmol/L 06/08/21 07:17 BUN 49 mg/dL (9-20) H 06/08/21 07:17 Creatinine 7.8 mg/dL (0.8-1.3) H 06/08/21 07:17 Estimated GFR 10 ml/min 06/08/21 07:17 BUN/Creatinine Ratio 6 % 06/08/21 07:17 Glucose 419 mg/dL (75-100) H 06/08/21 07:17 POC Glucose 322 mg/dL (70-105) H 06/09/21 11:19 Hemoglobin A1c 9.7 % (4-6) H 06/08/21 07:17 Calcium 7.3 mg/dL (8.4-10.2) L 06/08/21 07:17 Ferritin 444.0 ng/mL (30.0-300.0) H 06/07/21 12:26 Total Bilirubin 0.20 mg/dL (0.1-1.2) 06/08/21 07:17 AST 23 units/L (5-40) 06/08/21 07:17 ALT 48 units/L (7-56) 06/08/21 07:17 Alkaline Phosphatase 312 units/L (35-129) H 06/08/21 07:17 Lactate Dehydrogenase 585 units/L (91-180) H 06/07/21 12:26 C-Reactive Protein 3.80 mg/dL (0.00-1.30) H 06/07/21 12:26 NT-Pro-B Natriuret Pep 71578 pg/mL (0-450) H 06/07/21 12:05 Total Protein 5.7 g/dL (6.3-8.2) L 06/08/21 07:17 Albumin 3.1 g/dL (3.9-5) L 06/08/21 07:17 Albumin/Globulin Ratio 1.2 % 06/08/21 07:17 Procalcitonin 0.47 ng/mL (<0.15) 06/07/21 12:26 Coronavirus (PCR) Negative (Negative) 06/08/21 Unknown Hepatitis A IgM Ab Non-reactive (NonReactive) 06/07/21 17:27 Hep Bs Antigen Non-reactive (Negative) 06/07/21 17:27 Hep B Core IgM Ab Non-reactive (NonReactive) 06/07/21 17:27 Hepatitis C Antibody Non-reactive (NonReactive) 06/07/21 17:27 Dixon/IV: Voiding Method Toilet Active Medications - Current Medications Current Medications: Generic Name Dose Route Start Last Admin Trade Name Freq PRN Reason Stop Dose Admin Amlodipine Besylate 10 mg 06/08/21 21:00 06/09/21 10:11 Amlodipine 10 Mg Tab PO 10 mg QDAY JULIANO Administration Carvedilol 12.5 mg 06/08/21 21:03 06/09/21 10:12 Carvedilol 12.5 Mg Tab PO 12.5 mg BID JULIANO Administration Dextrose 50 ml 06/08/21 08:30 Dextrose 50% In Water (25gm) 50 Ml Syringe IV Q30MIN PRN Hypoglycemia Protocol Famotidine 10 mg 06/08/21 10:00 06/09/21 10:11 Famotidine 10 Mg Tab PO 10 mg BID JULIANO Administration Heparin Sodium (Porcine) 5,000 unit 06/07/21 22:15 06/09/21 10:00 Heparin 5,000 Unit/1 Ml Vial SUB-Q 5,000 unit Q12HR JULIANO Administration Hydralazine HCl 50 mg 06/07/21 23:00 06/09/21 06:17 Hydralazine 25 Mg Tab PO 50 mg Q8HR JULIANO Administration Hydralazine HCl 10 mg 06/08/21 20:59 Hydralazine 20 Mg/1 Ml Inj IV Q3H PRN Blood Pressure Hydromorphone HCl 0.5 mg 06/07/21 22:02 06/09/21 07:56 Hydromorphone 1 Mg/1 Ml Inj IV 0.5 mg Q3H PRN Administration Pain , Severe (7-10) Sodium Chloride 100 mls @ 999 mls/hr 06/07/21 17:00 Nacl 0.9% IV JESÚS PRN Hypotension Azithromycin 500 mg in 250 mls @ 250 mls/hr 06/08/21 10:00 06/09/21 10:10 Zithromax/Ns IV 250 mls/hr Q24H JULIANO Administration Ceftriaxone Sodium 1 gm in 50 mls @ 100 mls/hr 06/08/21 10:00 06/09/21 10:09 Rocephin/Ns 1 Gm/50 Ml IV 100 mls/hr Q24H JULIANO Administration Protocol Sodium Chloride 100 mls @ 999 mls/hr 06/08/21 14:30 Nacl 0.9% IV JESÚS PRN Hypotension Insulin Human Lispro 0 unit 06/08/21 08:30 06/09/21 11:30 Insulin Lispro 100 Unit/Ml SUB-Q 8 unit ACHS JULIANO Administration Protocol Ketorolac Tromethamine 15 mg 06/09/21 00:00 06/09/21 12:27 Ketorolac 30 Mg/1 Ml Inj IV 06/14/21 00:00 15 mg Q6HR JULIANO Administration Metoclopramide HCl 2.5 mg 06/07/21 23:54 Metoclopramide 10 Mg/2 Ml Inj IV Q6H PRN Nausea And Vomiting Ondansetron HCl 4 mg 06/07/21 22:02 Ondansetron 4 Mg/2 Ml Inj IV Q8H PRN Nausea And Vomiting Sodium Chloride 10 ml 06/08/21 10:00 06/09/21 10:14 Sodium Chloride 0.9% 10 Ml Flush Syringe IV 10 ml BID JULIANO Administration Sodium Chloride 10 ml 06/07/21 22:02 Sodium Chloride 0.9% 10 Ml Flush Syringe IV PRN PRN LINE FLUSH Valsartan 160 mg 06/08/21 22:00 06/09/21 10:11 Valsartan 160mg Tab PO 160 mg BID JULIANO Administration
--- NOTE | 2021-06-09 14:04 | Progress Note ---
Assessment and Plan Impression: * End stage renal disease on intermittent HD * Accelerated hypertension * Acute hypoxic respiratory failure secondary to pulmonary edema vs PNA * Anemia secondary to ESRD * Hyperkalemia, mild * Medical noncompliance Plan: * Patient is s/p HD on Thursday and Thursday * No indication for HD today. * Pain management per primary team * Hb 6.5 yesterday -recommend transfusion of pRBC prn HB< 7; management per primary team * Dose medications for renal function * Renal/HD diet * Epogen TIW prn * Defer discharge to primary team - no dialysis/nephrology needs today. Will plan for HD tomorrow if patient remains hospitalized; however, patient reports that he has outpatient dialysis tomorrow Subjective Date of service: 06/09/21 Interval history: Patient requesting pain medication. Objective - Vital Signs Vital signs: Vital Signs - 12hr 06/09/21 06/09/21 06/09/21 06:17 10:32 11:18 Temperature 98.2 F Pulse Rate 89 94 H Respiratory 18 Rate Blood Pressure 164/102 130/88 O2 Sat by Pulse 97 95 Oximetry - General Appearance General appearance: well-developed, well-nourished EENT: ATNC Respiratory: Present: Clear to Ascultation Cardiology: regular Gastrointestinal: normal, no tenderness, no distended Integumentary: no rash, warm and dry Neurologic: no focal deficit, alert and oriented x3 Psychiatric: agitated - Lab 06/08/21 07:17 06/08/21 07:17 Most recent lab results Calcium 7.3 mg/dL (8.4-10.2) L 06/08/21 07:17 Medications & Allergies - Medications Allergies/Adverse Reactions: Allergies acetaminophen [From Tylenol] Allergy (Verified 06/07/21 22:31) Unknown Home Medications: Home Medications Medication Instructions Recorded Confirmed Last Taken Type No Known Home Medications [No 06/08/21 06/08/21 Unknown History Reported Home Medications] Active Medications: Generic Name Dose Route Start Last Admin Trade Name Freq PRN Reason Stop Dose Admin Amlodipine Besylate 10 mg 06/08/21 21:00 06/09/21 10:11 Amlodipine 10 Mg Tab PO 10 mg QDAY JULIANO Administration Carvedilol 12.5 mg 06/08/21 21:03 06/09/21 10:12 Carvedilol 12.5 Mg Tab PO 12.5 mg BID JULIANO Administration Dextrose 50 ml 06/08/21 08:30 Dextrose 50% In Water (25gm) 50 Ml Syringe IV Q30MIN PRN Hypoglycemia Protocol Famotidine 10 mg 06/08/21 10:00 06/09/21 10:11 Famotidine 10 Mg Tab PO 10 mg BID JULIANO Administration Heparin Sodium (Porcine) 5,000 unit 06/07/21 22:15 06/09/21 10:00 Heparin 5,000 Unit/1 Ml Vial SUB-Q 5,000 unit Q12HR JULIANO Administration Hydralazine HCl 50 mg 06/07/21 23:00 06/09/21 06:17 Hydralazine 25 Mg Tab PO 50 mg Q8HR JULIANO Administration Hydralazine HCl 10 mg 06/08/21 20:59 Hydralazine 20 Mg/1 Ml Inj IV Q3H PRN Blood Pressure Hydromorphone HCl 0.5 mg 06/07/21 22:02 06/09/21 07:56 Hydromorphone 1 Mg/1 Ml Inj IV 0.5 mg Q3H PRN Administration Pain , Severe (7-10) Sodium Chloride 100 mls @ 999 mls/hr 06/07/21 17:00 Nacl 0.9% IV JESÚS PRN Hypotension Azithromycin 500 mg in 250 mls @ 250 mls/hr 06/08/21 10:00 06/09/21 10:10 Zithromax/Ns IV 250 mls/hr Q24H JULIANO Administration Ceftriaxone Sodium 1 gm in 50 mls @ 100 mls/hr 06/08/21 10:00 06/09/21 10:09 Rocephin/Ns 1 Gm/50 Ml IV 100 mls/hr Q24H JULIANO Administration Protocol Sodium Chloride 100 mls @ 999 mls/hr 06/08/21 14:30 Nacl 0.9% IV JESÚS PRN Hypotension Insulin Human Lispro 0 unit 06/08/21 08:30 06/09/21 11:30 Insulin Lispro 100 Unit/Ml SUB-Q 8 unit ACHS JULIANO Administration Protocol Ketorolac Tromethamine 15 mg 06/09/21 00:00 06/09/21 12:27 Ketorolac 30 Mg/1 Ml Inj IV 06/14/21 00:00 15 mg Q6HR JULIANO Administration Metoclopramide HCl 2.5 mg 06/07/21 23:54 Metoclopramide 10 Mg/2 Ml Inj IV Q6H PRN Nausea And Vomiting Ondansetron HCl 4 mg 06/07/21 22:02 Ondansetron 4 Mg/2 Ml Inj IV Q8H PRN Nausea And Vomiting Sodium Chloride 10 ml 06/08/21 10:00 06/09/21 10:14 Sodium Chloride 0.9% 10 Ml Flush Syringe IV 10 ml BID JULIANO Administration Sodium Chloride 10 ml 06/07/21 22:02 Sodium Chloride 0.9% 10 Ml Flush Syringe IV PRN PRN LINE FLUSH Valsartan 160 mg 06/08/21 22:00 06/09/21 10:11 Valsartan 160mg Tab PO 160 mg BID JULIANO Administration
[2021-06-09] MEDS ORDERED: SODIUM CHLORIDE 0.9% 500 ML 500 ML IV NR (14:17)
[2021-06-10] MEDS: KETOROLAC 30 MG/1 ML INJ IV SCH ×5 (00:03→23:11)
[2021-06-10] MEDS: HYDROmorphone 1 MG/1 ML INJ IV PRN ×3 (02:03→20:08)
[2021-06-10] MEDS: hydrALAZINE 25 MG TAB PO SCH ×3 (05:45→23:01)
[2021-06-10] MEDS ORDERED: SODIUM CHLORIDE 0.9% 100 ML IV PRN (08:01)
[2021-06-10] MEDS: INSULIN LISPRO 100 UNIT/ML SUB-Q SCH ×5 (08:47→23:09)
--- NOTE | 2021-06-10 09:27 | Progress Note ---
Assessment and Plan Impression: * End stage renal disease on intermittent HD * Accelerated hypertension * Acute hypoxic respiratory failure secondary to pulmonary edema vs PNA * Anemia secondary to ESRD * Hyperkalemia, mild * Medical noncompliance Plan: * Patient is s/p HD on Thursday and Thursday * Continue HD today per MWF schedule, seen upon starting HD * Pain management per primary team * Hb 6.5 06/08, note s/p transfusion of pRBC prn HB< 7; management per primary team, would recheck level to ensure no active bleeding * Dose medications for renal function * Renal/HD diet * Epogen TIW prn * Defer discharge to primary team - no contraindication for discharge from renal perspective, advised patient to continue his outpatient HD regimen MWF at [facility] Subjective Date of service: 06/10/21 Interval history: Patient with concerns for pain, overall issues with insurance and inability to obtain Medicaid/Medicare. Seen in HD unit Objective - Exam Narrative Exam: General appearance: well-developed, well-nourished EENT: ATNC Respiratory: Present: Clear to Auscultation Cardiology: regular Gastrointestinal: normal, no tenderness, no distended Integumentary: no rash, warm and dry Neurologic: no focal deficit, alert and oriented x3 Psychiatric: agitated Access: CVC RIJ, C/D/I - Vital Signs Vital signs: Vital Signs - 12hr 06/09/21 06/09/21 06/09/21 21:49 22:19 22:49 Temperature 98.6 F 98.5 F 98.4 F Pulse Rate 89 85 86 Respiratory 17 19 19 Rate Blood Pressure 132/84 139/86 145/89 O2 Sat by Pulse 98 98 98 Oximetry 06/09/21 06/09/21 06/09/21 23:19 23:55 23:56 Temperature 98.4 F Pulse Rate 82 82 82 Respiratory 19 Rate Blood Pressure 156/97 156/97 157/97 O2 Sat by Pulse 98 Oximetry 06/10/21 06/10/21 06/10/21 00:03 00:33 01:56 Temperature Pulse Rate Respiratory 17 17 17 Rate Blood Pressure O2 Sat by Pulse 97 Oximetry 06/10/21 06/10/21 06/10/21 02:03 04:07 04:22 Temperature 98.1 F 98 F Pulse Rate 84 78 Respiratory 17 17 17 Rate Blood Pressure 148/96 160/100 O2 Sat by Pulse 96 Oximetry 06/10/21 06/10/21 06/10/21 04:52 05:22 05:44 Temperature 98 F 98.1 F Pulse Rate 85 83 Respiratory 18 19 17 Rate Blood Pressure 158/95 154/93 O2 Sat by Pulse 96 97 Oximetry 06/10/21 06/10/21 06/10/21 05:45 05:52 06:22 Temperature 98 F 98 F Pulse Rate 79 84 83 Respiratory 18 17 Rate Blood Pressure 152/99 150/95 149/95 O2 Sat by Pulse 98 Oximetry 06/10/21 06/10/21 06/10/21 06:50 06:58 07:28 Temperature 98 F Pulse Rate 81 Respiratory 18 17 17 Rate Blood Pressure 143/95 O2 Sat by Pulse 97 Oximetry - Lab 06/08/21 07:17 06/08/21 07:17 Most recent lab results Calcium 7.3 mg/dL (8.4-10.2) L 06/08/21 07:17 Medications & Allergies - Medications Allergies/Adverse Reactions: Allergies acetaminophen [From Tylenol] Allergy (Verified 06/07/21 22:31) Unknown Home Medications: Home Medications Medication Instructions Recorded Confirmed Last Taken Type No Known Home Medications [No 06/08/21 06/08/21 Unknown History Reported Home Medications] Active Medications: Generic Name Dose Route Start Last Admin Trade Name Papoq PRN Reason Stop Dose Admin Amlodipine Besylate 10 mg 06/08/21 21:00 06/09/21 10:11 Amlodipine 10 Mg Tab PO 10 mg QDAY JULIANO Administration Carvedilol 12.5 mg 06/08/21 21:03 06/09/21 23:56 Carvedilol 12.5 Mg Tab PO 12.5 mg BID JULIANO Administration Dextrose 50 ml 06/08/21 08:30 Dextrose 50% In Water (25gm) 50 Ml Syringe IV Q30MIN PRN Hypoglycemia Protocol Famotidine 10 mg 06/08/21 10:00 06/09/21 23:55 Famotidine 10 Mg Tab PO 10 mg BID JULIANO Administration Heparin Sodium (Porcine) 5,000 unit 06/07/21 22:15 06/09/21 23:57 Heparin 5,000 Unit/1 Ml Vial SUB-Q 5,000 unit Q12HR JULIANO Administration Hydralazine HCl 50 mg 06/07/21 23:00 06/10/21 05:45 Hydralazine 25 Mg Tab PO 50 mg Q8HR JULIANO Administration Hydralazine HCl 10 mg 06/08/21 20:59 Hydralazine 20 Mg/1 Ml Inj IV Q3H PRN Blood Pressure Hydromorphone HCl 0.5 mg 06/07/21 22:02 06/10/21 06:58 Hydromorphone 1 Mg/1 Ml Inj IV 0.5 mg Q3H PRN Administration Pain , Severe (7-10) Sodium Chloride 100 mls @ 999 mls/hr 06/07/21 17:00 Nacl 0.9% IV JESÚS PRN Hypotension Azithromycin 500 mg in 250 mls @ 250 mls/hr 06/08/21 10:00 06/09/21 10:10 Zithromax/Ns IV 250 mls/hr Q24H JULIANO Administration Ceftriaxone Sodium 1 gm in 50 mls @ 100 mls/hr 06/08/21 10:00 06/09/21 10:09 Rocephin/Ns 1 Gm/50 Ml IV 100 mls/hr Q24H JULIANO Administration Protocol Sodium Chloride 100 mls @ 999 mls/hr 06/08/21 14:30 Nacl 0.9% IV JESÚS PRN Hypotension Sodium Chloride 100 mls @ 999 mls/hr 06/10/21 08:01 Nacl 0.9% IV JESÚS PRN Hypotension Insulin Human Lispro 0 unit 06/08/21 08:30 06/10/21 08:47 Insulin Lispro 100 Unit/Ml SUB-Q 6 unit ACHS JULIANO Administration Protocol Ketorolac Tromethamine 15 mg 06/09/21 00:00 06/10/21 05:44 Ketorolac 30 Mg/1 Ml Inj IV 06/14/21 00:00 15 mg Q6HR JULIANO Administration Metoclopramide HCl 2.5 mg 06/07/21 23:54 Metoclopramide 10 Mg/2 Ml Inj IV Q6H PRN Nausea And Vomiting Ondansetron HCl 4 mg 06/07/21 22:02 Ondansetron 4 Mg/2 Ml Inj IV Q8H PRN Nausea And Vomiting Sodium Chloride 10 ml 06/08/21 10:00 06/10/21 07:07 Sodium Chloride 0.9% 10 Ml Flush Syringe IV 10 ml BID JULIANO Administration Sodium Chloride 10 ml 06/07/21 22:02 06/10/21 02:07 Sodium Chloride 0.9% 10 Ml Flush Syringe IV 10 ml PRN PRN Administration LINE FLUSH Valsartan 160 mg 06/08/21 22:00 06/09/21 23:55 Valsartan 160mg Tab PO 160 mg BID JULIANO Administration
--- NOTE | 2021-06-10 10:10 | Progress Note ---
Assessment and Plan Assessment and plan: (1) Acute exacerbation of CHF (congestive heart failure) Strict I/O, afterload reduction, daily weight, low-sodium diet, blood pressure control, supplemental oxygen, pulse oximetry (2) ESRD needing dialysis Dialysis as per renal team, discharge planning pending repeat dialysis as per renal team recommendations. (3) Acute respiratory failure with hypoxia Supplemental oxygen, pulse oximetry, chest x-ray, (4) Anemia of chronic disease. (5) DVT prophylaxis SCD to bilateral lower extremities while in bed, prophylactic anticoagulation History Interval history: No new issues overnight. Hospitalist Physical - Constitutional Vitals: Temp Pulse Resp BP Pulse Ox 98 F 81 17 143/95 97 06/10/21 06:50 06/10/21 06:50 06/10/21 07:28 06/10/21 06:50 06/10/21 06:50 General appearance: Present: mild distress, well-nourished - EENT Eyes: Present: PERRL, EOM intact ENT: hearing intact, clear oral mucosa, dentition normal - Neck Neck: Present: supple, normal ROM - Respiratory Respiratory effort: normal Respiratory: bilateral: CTA - Cardiovascular Rhythm: regular Heart Sounds: Present: S1 & S2. Absent: gallop, rub - Extremities Extremities: no ischemia, No edema, Full ROM - Abdominal General gastrointestinal: soft, non-tender, non-distended, normal bowel sounds - Integumentary Integumentary: Present: clear, warm, dry - Neurologic Neurologic: CNII-XII intact, moves all extremities HEART Score - HEART Score Age: < 45 Risk factors: 1-2 risk factors Troponin: < normal limit - Critical Actions Critical Actions: 4-6 pts:12-16.6% risk of adverse cardiac event. Should be admitted Results - Labs CBC & Chem 7: 06/08/21 07:17 06/08/21 07:17 Labs: Laboratory Last Values WBC 9.7 K/mm3 (4.5-11.0) 06/08/21 07:17 RBC 2.77 M/mm3 (3.65-5.03) L 06/08/21 07:17 Hgb 6.5 gm/dl (11.8-15.2) L 06/08/21 07:17 Hct 20.5 % (35.5-45.6) L 06/08/21 07:17 MCV 74 fl (84-94) L 06/08/21 07:17 MCH 24 pg (28-32) L 06/08/21 07:17 MCHC 32 % (32-34) 06/08/21 07:17 RDW 20.0 % (13.2-15.2) H 06/08/21 07:17 Plt Count 126 K/mm3 (140-440) L 06/08/21 07:17 Add Manual Diff Complete 06/08/21 07:17 Total Counted 100 06/08/21 07:17 Seg Neuts % (Manual) 79.0 % (40.0-70.0) H 06/08/21 07:17 Band Neutrophils % 1.0 % 06/08/21 07:17 Lymphocytes % (Manual) 16.0 % (13.4-35.0) 06/08/21 07:17 Monocytes % (Manual) 4.0 % (0.0-7.3) 06/08/21 07:17 Eosinophils % (Manual) 2.0 % (0.0-4.3) 06/07/21 12:05 Basophils % (Manual) 1.0 % (0.0-1.8) 06/07/21 12:05 Nucleated RBC % Not Reportable 06/08/21 07:17 Seg Neutrophils # Man 7.7 K/mm3 (1.8-7.7) 06/08/21 07:17 Band Neutrophils # 0.1 K/mm3 06/08/21 07:17 Lymphocytes # (Manual) 1.6 K/mm3 (1.2-5.4) 06/08/21 07:17 Abs React Lymphs (Man) 0.0 K/mm3 06/08/21 07:17 Monocytes # (Manual) 0.4 K/mm3 (0.0-0.8) 06/08/21 07:17 Eosinophils # (Manual) 0.0 K/mm3 (0.0-0.4) 06/08/21 07:17 Basophils # (Manual) 0.0 K/mm3 (0.0-0.1) 06/08/21 07:17 Metamyelocytes # 0.0 K/mm3 06/08/21 07:17 Myelocytes # 0.0 K/mm3 06/08/21 07:17 Promyelocytes # 0.0 K/mm3 06/08/21 07:17 Blast Cells # 0.0 K/mm3 06/08/21 07:17 WBC Morphology Not Reportable 06/08/21 07:17 Hypersegmented Neuts Not Reportable 06/08/21 07:17 Hyposegmented Neuts Not Reportable 06/08/21 07:17 Hypogranular Neuts Not Reportable 06/08/21 07:17 Smudge Cells Not Reportable 06/08/21 07:17 Toxic Granulation Not Reportable 06/08/21 07:17 Toxic Vacuolation Not Reportable 06/08/21 07:17 Dohle Bodies Not Reportable 06/08/21 07:17 Pelger-Huet Anomaly Not Reportable 06/08/21 07:17 Nathan Rods Not Reportable 06/08/21 07:17 Platelet Estimate Consistent w auto 06/08/21 07:17 Clumped Platelets Not Reportable 06/08/21 07:17 Plt Clumps, EDTA Not Reportable 06/08/21 07:17 Large Platelets Not Reportable 06/08/21 07:17 Giant Platelets Not Reportable 06/08/21 07:17 Platelet Satelliting Not Reportable 06/08/21 07:17 Plt Morphology Comment Not Reportable 06/08/21 07:17 RBC Morphology Not Reportable 06/08/21 07:17 Dimorphic RBCs Not Reportable 06/08/21 07:17 Polychromasia Not Reportable 06/08/21 07:17 Hypochromasia 2+ 06/08/21 07:17 Poikilocytosis Not Reportable 06/08/21 07:17 Anisocytosis 2+ 06/08/21 07:17 Microcytosis Not Reportable 06/08/21 07:17 Macrocytosis Not Reportable 06/08/21 07:17 Spherocytes Not Reportable 06/08/21 07:17 Pappenheimer Bodies Not Reportable 06/08/21 07:17 Sickle Cells Not Reportable 06/08/21 07:17 Target Cells Not Reportable 06/08/21 07:17 Tear Drop Cells Not Reportable 06/08/21 07:17 Ovalocytes Not Reportable 06/08/21 07:17 Helmet Cells Not Reportable 06/08/21 07:17 Cheek-[place] Bodies Not Reportable 06/08/21 07:17 Kenvir Rings Not Reportable 06/08/21 07:17 Wharton Cells Not Reportable 06/08/21 07:17 Bite Cells Not Reportable 06/08/21 07:17 Crenated Cell Not Reportable 06/08/21 07:17 Elliptocytes Not Reportable 06/08/21 07:17 Acanthocytes (Spur) Not Reportable 06/08/21 07:17 Rouleaux Not Reportable 06/08/21 07:17 Hemoglobin C Crystals Not Reportable 06/08/21 07:17 Schistocytes Not Reportable 06/08/21 07:17 Malaria parasites Not Reportable 06/08/21 07:17 Niranjan Bodies Not Reportable 06/08/21 07:17 Hem Pathologist Commnt No 06/08/21 07:17 PT 14.6 Sec. (12.2-14.9) 06/07/21 12:05 INR 1.09 (0.87-1.13) 06/07/21 12:05 D-Dimer 2303.03 ng/mlDDU (0-234) H 06/07/21 12:26 VBG pH 7.327 (7.320-7.420) 06/07/21 12:05 Sodium 138 mmol/L (137-145) 06/08/21 07:17 Potassium 4.5 mmol/L (3.6-5.0) 06/08/21 07:17 Chloride 97.1 mmol/L (98-107) L 06/08/21 07:17 Carbon Dioxide 26 mmol/L (22-30) 06/08/21 07:17 Anion Gap 19 mmol/L 06/08/21 07:17 BUN 49 mg/dL (9-20) H 06/08/21 07:17 Creatinine 7.8 mg/dL (0.8-1.3) H 06/08/21 07:17 Estimated GFR 10 ml/min 06/08/21 07:17 BUN/Creatinine Ratio 6 % 06/08/21 07:17 Glucose 419 mg/dL (75-100) H 06/08/21 07:17 POC Glucose 251 mg/dL (70-105) H 06/10/21 07:54 Hemoglobin A1c 9.7 % (4-6) H 06/08/21 07:17 Calcium 7.3 mg/dL (8.4-10.2) L 06/08/21 07:17 Ferritin 444.0 ng/mL (30.0-300.0) H 06/07/21 12:26 Total Bilirubin 0.20 mg/dL (0.1-1.2) 06/08/21 07:17 AST 23 units/L (5-40) 06/08/21 07:17 ALT 48 units/L (7-56) 06/08/21 07:17 Alkaline Phosphatase 312 units/L (35-129) H 06/08/21 07:17 Lactate Dehydrogenase 585 units/L (91-180) H 06/07/21 12:26 C-Reactive Protein 3.80 mg/dL (0.00-1.30) H 06/07/21 12:26 NT-Pro-B Natriuret Pep 00020 pg/mL (0-450) H 06/07/21 12:05 Total Protein 5.7 g/dL (6.3-8.2) L 06/08/21 07:17 Albumin 3.1 g/dL (3.9-5) L 06/08/21 07:17 Albumin/Globulin Ratio 1.2 % 06/08/21 07:17 Procalcitonin 0.47 ng/mL (<0.15) 06/07/21 12:26 Coronavirus (PCR) Negative (Negative) 06/08/21 Unknown Hepatitis A IgM Ab Non-reactive (NonReactive) 06/07/21 17:27 Hep Bs Antigen Non-reactive (Negative) 06/07/21 17:27 Hep B Core IgM Ab Non-reactive (NonReactive) 06/07/21 17:27 Hepatitis C Antibody Non-reactive (NonReactive) 06/07/21 17:27 Blood Type A POSITIVE 06/09/21 14:40 Antibody Screen Negative 06/09/21 14:40 Crossmatch See Detail 06/09/21 14:40 Dixon/IV: Voiding Method Toilet Active Medications - Current Medications Current Medications: Generic Name Dose Route Start Last Admin Trade Name Freq PRN Reason Stop Dose Admin Amlodipine Besylate 10 mg 06/08/21 21:00 06/09/21 10:11 Amlodipine 10 Mg Tab PO 10 mg QDAY JULIANO Administration Carvedilol 12.5 mg 06/08/21 21:03 06/09/21 23:56 Carvedilol 12.5 Mg Tab PO 12.5 mg BID JULIANO Administration Dextrose 50 ml 06/08/21 08:30 Dextrose 50% In Water (25gm) 50 Ml Syringe IV Q30MIN PRN Hypoglycemia Protocol Famotidine 10 mg 06/08/21 10:00 06/09/21 23:55 Famotidine 10 Mg Tab PO 10 mg BID JULIANO Administration Heparin Sodium (Porcine) 5,000 unit 06/07/21 22:15 06/09/21 23:57 Heparin 5,000 Unit/1 Ml Vial SUB-Q 5,000 unit Q12HR JULIANO Administration Hydralazine HCl 50 mg 06/07/21 23:00 06/10/21 05:45 Hydralazine 25 Mg Tab PO 50 mg Q8HR JULIANO Administration Hydralazine HCl 10 mg 06/08/21 20:59 Hydralazine 20 Mg/1 Ml Inj IV Q3H PRN Blood Pressure Hydromorphone HCl 0.5 mg 06/07/21 22:02 06/10/21 06:58 Hydromorphone 1 Mg/1 Ml Inj IV 0.5 mg Q3H PRN Administration Pain , Severe (7-10) Sodium Chloride 100 mls @ 999 mls/hr 06/07/21 17:00 Nacl 0.9% IV JESÚS PRN Hypotension Azithromycin 500 mg in 250 mls @ 250 mls/hr 06/08/21 10:00 06/09/21 10:10 Zithromax/Ns IV 250 mls/hr Q24H JULIANO Administration Ceftriaxone Sodium 1 gm in 50 mls @ 100 mls/hr 06/08/21 10:00 06/09/21 10:09 Rocephin/Ns 1 Gm/50 Ml IV 100 mls/hr Q24H JULIANO Administration Protocol Sodium Chloride 100 mls @ 999 mls/hr 06/08/21 14:30 Nacl 0.9% IV JESÚS PRN Hypotension Sodium Chloride 100 mls @ 999 mls/hr 06/10/21 08:01 Nacl 0.9% IV JESÚS PRN Hypotension Insulin Human Lispro 0 unit 06/08/21 08:30 06/10/21 08:47 Insulin Lispro 100 Unit/Ml SUB-Q 6 unit ACHS JULIANO Administration Protocol Ketorolac Tromethamine 15 mg 06/09/21 00:00 06/10/21 05:44 Ketorolac 30 Mg/1 Ml Inj IV 06/14/21 00:00 15 mg Q6HR JULIANO Administration Metoclopramide HCl 2.5 mg 06/07/21 23:54 Metoclopramide 10 Mg/2 Ml Inj IV Q6H PRN Nausea And Vomiting Ondansetron HCl 4 mg 06/07/21 22:02 Ondansetron 4 Mg/2 Ml Inj IV Q8H PRN Nausea And Vomiting Sodium Chloride 10 ml 06/08/21 10:00 06/10/21 07:07 Sodium Chloride 0.9% 10 Ml Flush Syringe IV 10 ml BID JULIANO Administration Sodium Chloride 10 ml 06/07/21 22:02 06/10/21 02:07 Sodium Chloride 0.9% 10 Ml Flush Syringe IV 10 ml PRN PRN Administration LINE FLUSH Valsartan 160 mg 06/08/21 22:00 06/09/21 23:55 Valsartan 160mg Tab PO 160 mg BID JULIANO Administration
--- NOTE | 2021-06-10 10:56 | Electrocardiograph Report ---
[facility] Test Date: 2021-06-07 Test Time: 13:29:50 Pat Name: SEBLE FERNANDEZ Department: Room: A384 1 Gender: M [employer]: MAXINE : 1985 Requested By: LISANDRA MUIR Order Number: [id number] Reading MD: Leroy Hernandez Measurements Intervals Nathalie Rate: 94 P: 75 NM: 147 QRS: 70 QRSD: 87 T: 99 QT: 396 QTc: 497 Interpretive Statements Sinus rhythm Probable left atrial enlargement Nonspecific T abnormalities, lateral leads Prolonged QT interval No previous ECG available for comparison Electronically Signed On 06-10-2021 10:56:17 EDT by Leroy Hernandez
[2021-06-10] MEDS: VALSARTAN 160MG TAB PO SCH ×2 (11:02→23:00)
[2021-06-10] MEDS: FAMOTIDINE 10 MG TAB PO SCH ×2 (11:02→22:59)
[2021-06-10] MEDS: carvediloL 12.5 MG TAB PO SCH ×2 (11:02→22:59)
[2021-06-10] MEDS: amLODIPine 10 MG TAB PO SCH ×2 (11:02→13:10)
[2021-06-10] MEDS: HEPARIN 5,000 UNIT/1 ML VIAL SUB-Q SCH ×2 (11:02→23:04)
[2021-06-10] MEDS: AZITHROMYCIN/NS 500 MG/250 ML 500 MG/250 ML BAG IV SCH (11:03)
[2021-06-10] MEDS: cefTRIAXone/NS 1 GM/50 ML 1 GM/50 ML BAG IV SCH (11:03)
[2021-06-11] MEDS: HYDROmorphone 1 MG/1 ML INJ IV PRN ×3 (00:40→12:58)
[2021-06-11] MEDS: KETOROLAC 30 MG/1 ML INJ IV SCH ×2 (05:36→12:58)
[2021-06-11] MEDS: hydrALAZINE 25 MG TAB PO SCH ×2 (05:37→15:34)
[2021-06-11 07:57] LABS: Hematocrit 30.3 % (35.5-45.6); Hemoglobin 9.8 gm/dl (11.8-15.2); Mean Corpuscular HGB Conc 32 % (32-34); Mean Corpuscular Volume 78 fl (84-94); Red Blood Count 3.88 M/mm3 (3.65-5.03)
[2021-06-11 08:16] LABS: Calcium 7.8 mg/dL (8.4-10.2)
[2021-06-11] MEDS: INSULIN LISPRO 100 UNIT/ML SUB-Q SCH ×2 (08:54→12:44)
[2021-06-11 09:48] LABS: Red Cell Distribution Width 20.7 % (13.2-15.2)
--- NOTE | 2021-06-11 10:13 | Progress Note ---
Assessment and Plan Impression: * End stage renal disease on intermittent HD * Accelerated hypertension * Acute hypoxic respiratory failure secondary to pulmonary edema vs PNA * Anemia secondary to ESRD * Hyperkalemia, mild * Medical noncompliance Plan: * Patient is s/p HD on Thursday and Thursday * Continue HD tomorrow per MWF schedule, had HD yesterday without issues * No indication for HD today per lytes/volume assessment * Pain management per primary team * Hb 6.5->9.8 s/p transfusion of pRBC * Dose medications for renal function * Renal/HD diet * Epogen TIW prn * Defer discharge to primary team - no contraindication for discharge from renal perspective, advised patient to continue his outpatient HD regimen MWF at [facility] Subjective Date of service: 06/11/21 Interval history: Resting this AM Objective - Exam Narrative Exam: General appearance: well-developed, well-nourished EENT: ATNC Respiratory: Present: Clear to Auscultation Cardiology: regular Gastrointestinal: normal, no tenderness, no distended Integumentary: no rash, warm and dry Neurologic: no focal deficit, alert and oriented x3 Psychiatric: agitated Access: CVC RIJ, C/D/I - Vital Signs Vital signs: Vital Signs - 12hr 06/10/21 06/10/21 06/10/21 22:59 23:00 23:01 Pulse Rate 88 88 88 Respiratory Rate Blood Pressure 134/86 134/86 134/86 O2 Sat by Pulse Oximetry 06/11/21 06/11/21 02:00 05:37 Pulse Rate 90 Respiratory 20 Rate Blood Pressure 135/88 O2 Sat by Pulse 98 Oximetry - Lab 06/11/21 06:52 06/11/21 06:52 Most recent lab results Calcium 7.8 mg/dL (8.4-10.2) L 06/11/21 06:52 Medications & Allergies - Medications Allergies/Adverse Reactions: Allergies acetaminophen [From Tylenol] Allergy (Verified 06/07/21 22:31) Unknown Home Medications: Home Medications Medication Instructions Recorded Confirmed Last Taken Type No Known Home Medications [No 06/08/21 06/08/21 Unknown History Reported Home Medications] Active Medications: Generic Name Dose Route Start Last Admin Trade Name Freq PRN Reason Stop Dose Admin Amlodipine Besylate 10 mg 06/08/21 21:00 06/10/21 13:10 Amlodipine 10 Mg Tab PO 10 mg QDAY JULIANO Administration Carvedilol 12.5 mg 06/08/21 21:03 06/10/21 22:59 Carvedilol 12.5 Mg Tab PO 12.5 mg BID JULIANO Administration Dextrose 50 ml 06/08/21 08:30 Dextrose 50% In Water (25gm) 50 Ml Syringe IV Q30MIN PRN Hypoglycemia Protocol Famotidine 10 mg 06/08/21 10:00 06/10/21 22:59 Famotidine 10 Mg Tab PO 10 mg BID JULIANO Administration Heparin Sodium (Porcine) 5,000 unit 06/07/21 22:15 06/10/21 23:04 Heparin 5,000 Unit/1 Ml Vial SUB-Q 5,000 unit Q12HR JULIANO Administration Hydralazine HCl 50 mg 06/07/21 23:00 06/11/21 05:37 Hydralazine 25 Mg Tab PO 50 mg Q8HR JULIANO Administration Hydralazine HCl 10 mg 06/08/21 20:59 Hydralazine 20 Mg/1 Ml Inj IV Q3H PRN Blood Pressure Hydromorphone HCl 0.5 mg 06/07/21 22:02 06/11/21 08:57 Hydromorphone 1 Mg/1 Ml Inj IV 0.5 mg Q3H PRN Administration Pain , Severe (7-10) Azithromycin 500 mg in 250 mls @ 250 mls/hr 06/08/21 10:00 06/10/21 11:03 Zithromax/Ns IV 06/11/21 10:59 Not Given Q24H JULIANO Ceftriaxone Sodium 1 gm in 50 mls @ 100 mls/hr 06/08/21 10:00 06/10/21 11:03 Rocephin/Ns 1 Gm/50 Ml IV 06/11/21 10:29 Not Given Q24H JULIANO Protocol Sodium Chloride 100 mls @ 999 mls/hr 06/10/21 08:01 Nacl 0.9% IV JESÚS PRN Hypotension Insulin Human Lispro 0 unit 06/08/21 08:30 06/11/21 08:54 Insulin Lispro 100 Unit/Ml SUB-Q 3 unit ACHS JULIANO Administration Protocol Ketorolac Tromethamine 15 mg 06/09/21 00:00 06/11/21 05:36 Ketorolac 30 Mg/1 Ml Inj IV 06/14/21 00:00 15 mg Q6HR JULIANO Administration Metoclopramide HCl 2.5 mg 06/07/21 23:54 Metoclopramide 10 Mg/2 Ml Inj IV Q6H PRN Nausea And Vomiting Ondansetron HCl 4 mg 06/07/21 22:02 Ondansetron 4 Mg/2 Ml Inj IV Q8H PRN Nausea And Vomiting Sodium Chloride 10 ml 06/08/21 10:00 06/11/21 08:59 Sodium Chloride 0.9% 10 Ml Flush Syringe IV 10 ml BID JULIANO Administration Sodium Chloride 10 ml 06/07/21 22:02 06/10/21 02:07 Sodium Chloride 0.9% 10 Ml Flush Syringe IV 10 ml PRN PRN Administration LINE FLUSH Valsartan 160 mg 06/08/21 22:00 06/10/21 23:00 Valsartan 160mg Tab PO 160 mg BID JULIANO Administration
[2021-06-11 12:29] VITALS: BP 147/92
[2021-06-11] MEDS: HEPARIN 5,000 UNIT/1 ML VIAL SUB-Q SCH (12:38)
[2021-06-11] MEDS: carvediloL 12.5 MG TAB PO SCH (12:39)
[2021-06-11] MEDS: amLODIPine 10 MG TAB PO SCH (12:40)
[2021-06-11] MEDS: VALSARTAN 160MG TAB PO SCH (12:40)
[2021-06-11] MEDS: AZITHROMYCIN/NS 500 MG/250 ML 500 MG/250 ML BAG IV SCH (12:42)
[2021-06-11] MEDS: FAMOTIDINE 10 MG TAB PO SCH (12:42)
[2021-06-11] MEDS: cefTRIAXone/NS 1 GM/50 ML 1 GM/50 ML BAG IV SCH (12:42)
--- NOTE | 2021-06-11 13:10 | Discharge Summary ---
Providers - Providers Date of Admission: 06/07/21 13:09 Date of discharge: 06/11/21 Attending physician: ABIMAEL PIÑA 06/07/21 12:53 Consult to Physician [CONS] Routine Comment: Consulting Provider: ARTIS LOYD Physician Instructions: Reason For Exam: ESRD needing dialysis 06/07/21 12:57 Consult to Case Management [CONS] Routine Services Needed at Discharge: Sql Server Consultant Notified:: . Primary care physician: GEOLOGIST PETROLEUM Hospitalization Condition: Serious Hospital course: 35-year-old presented with shortness of breath and acute hypoxic respiratory failure secondary to pulmonary edema. Patient medical noncompliance and missed hemodialysis. Patient presented defervesced well after hemodialysis. Patient also had accelerated hypertension from missed hemodialysis. Was dialyzed subsequently 2 days. Also placed back on antihypertensive medications and blood pressure defervesced well. Patient without any shortness of breath without any dips on exertion. Strength has returned. Patient stable for discharge and continue hemodialysis tomorrow at normal dialysis center. Disposition: DC- TO HOME OR SELFCARE Final Discharge Diagnosis (Prints w/discharge instructions): Acute hypoxic respiratory failure - Discharge Diagnoses (1) Acute exacerbation of CHF (congestive heart failure) Status: Acute Qualifiers: Heart failure type: combined systolic and diastolic Qualified Code(s): I50.43 - Acute on chronic combined systolic (congestive) and diastolic (congestive) heart failure Comment: Secondary to missed dialysis. Did well after hemodialysis x2 days. (2) Acute respiratory failure with hypoxia Status: Acute Comment: Secondary to volume overload from missed dialysis. (3) Suspected COVID-19 virus infection Status: Acute Comment: Ruled out for COVID-19 (4) ESRD needing dialysis Status: Chronic Comment: Explained the patient about maintaining compliance. Will continue hemodialysis as were doing Thursday and Thursday. Patient to receive dialysis again tomorrow (5) Hypertension Status: Chronic Qualifiers: Hypertension type: primary hypertension Qualified Code(s): I10 - Essential (primary) hypertension Comment: Patient has much better controlled after hemodialysis continue antihypertensives. Core Measure Documentation - Palliative Care Palliative Care/ Comfort Measures: Not Applicable - Core Measures Any of the following diagnoses?: none Exam - Constitutional Vitals: Temp Pulse Resp BP Pulse Ox 98.0 F 88 19 147/92 97 06/11/21 11:31 06/11/21 12:39 06/11/21 11:31 06/11/21 12:39 06/11/21 11:31 General appearance: Present: no acute distress, well-nourished - EENT Eyes: Present: PERRL ENT: hearing intact, clear oral mucosa - Neck Neck: Present: supple, normal ROM - Respiratory Respiratory effort: normal Respiratory: bilateral: CTA - Cardiovascular Heart Sounds: Present: S1 & S2. Absent: rub, click - Extremities Extremities: pulses symmetrical, No edema Peripheral Pulses: within normal limits - Abdominal General gastrointestinal: Present: soft, non-tender, non-distended, normal bowel sounds Male genitourinary: Present: normal - Integumentary Integumentary: Present: clear, warm, dry - Musculoskeletal Musculoskeletal: gait normal, strength equal bilaterally - Psychiatric Psychiatric: appropriate mood/affect, intact judgment & insight - Neurologic Neurologic: CNII-XII intact, moves all extremities Plan Activity: no restrictions, fall precautions Weight Bearing Status: Full Weight Bearing Diet: diabetic, renal Prescriptions: amLODIPine 10 mg PO QDAY #30 tablet hydrALAZINE [Apresoline TAB] 50 mg PO Q8HR #60 tablet carvediloL [Coreg] 12.5 mg PO BID #60 tablet Valsartan [Diovan] 160 mg PO BID #60 tablet Famotidine [Pepcid] 10 mg PO BID #60 tablet
[2021-06-11 15:55] LABS: Total Cells Counted 100
[2021-06-11 15:56] LABS: Anisocytosis 2+; Hypochromasia 2+
[2021-06-11 15:57] LABS: Platelet Estimate Consistent w Auto; Poikilocytosis 2+; Spherocytes 1+
[2021-06-11 17:41] LABS: Platelet Count 164 K/mm3 (140-440)
== END 2021-06-11 16:33 | disposition home or self-care (01) | DRG 291 ==
LOC: ED 10:35 → 3A 13:09
PROVIDERS: ADMIT Internal Medicine; ATTEND Internal Medicine
PROC: 5A1D70Z Performance of Urinary Filtration, Intermittent, Less than 6 Hours Per Day (ICD-10-PCS; 2021-06-07)
PROC: 5A1D70Z Performance of Urinary Filtration, Intermittent, Less than 6 Hours Per Day (ICD-10-PCS; 2021-06-08)
PROC: 30233N1 Transfusion of Nonautologous Red Blood Cells into Peripheral Vein, Percutaneous Approach (ICD-10-PCS; principal; 2021-06-09)
PROC: 5A1D70Z Performance of Urinary Filtration, Intermittent, Less than 6 Hours Per Day (ICD-10-PCS; 2021-06-10)
DX: I13.2 Hypertensive heart and chronic kidney disease with heart failure and with stage 5 chronic kidney disease, or end stage renal disease (principal); N18.6 End stage renal disease; I50.43 Acute on chronic combined systolic (congestive) and diastolic (congestive) heart failure; J96.01 Acute respiratory failure with hypoxia; Z20.822 Contact with and (suspected) exposure to COVID-19; Z88.8 Allergy status to other drugs, medicaments and biological substances; Z91.19 Patient's noncompliance with other medical treatment and regimen; E11.65 Type 2 diabetes mellitus with hyperglycemia; E11.22 Type 2 diabetes mellitus with diabetic chronic kidney disease; Z99.2 Dependence on renal dialysis; D63.1 Anemia in chronic kidney disease; E87.5 Hyperkalemia
CPT/HCPCS: 36415; 71045; 80048; 80053; 80074; 82728; 82805; 82962; 83036; 83615; 83880; 84145; 85007; 85025; 85379; 85610; 86140; 86850; 86900; 86901; 86920; 93005; 99291; G0378; J0360; J0456; J0696; J1100; J1170; J1644; J1815; J1885; J2270; J2405; J7040; P9016; U0003

== ENCOUNTER 2021-07-01 14:36 | Emergency (ER) | payer SELFPAY ==
[2021-07-01 14:58] VITALS: BP 174/96
--- NOTE | 2021-07-01 15:15 | Emergency Department Report ---
Blank Doc - Documentation Documentation: 35-year-old male that was brought by EMS for noncompliance with medication, di alysis, failure to thrive and fatigue. 1- This is a initial triage assessment/medical screening only. Full assessment and work-up will be completed once the patient is in proper hospital gown, ED bed and in a private room setting. This initial assessment/diagnostic orders/clinical plan/ treatment(s) is/are subject to change based on pt's health status, clinical progression and re-assessment by fellow clinical providers in the ED. Further treatment and workup at subsequent clinical providers discretion. Patient/guardians urged not to elope from ED as their condition may be serious if not clinically assessed and managed. 2-labs 3-EKG 4-chest x-ray
[2021-07-01 17:19] LABS: Basophils # (Auto) 0.1 K/mm3 (0.0-0.1); Basophils % (Auto) 1.1 % (0.0-1.8); Eosinophils % (Auto) 0.3 % (0.0-4.3); Hematocrit 27.4 % (35.5-45.6); Hemoglobin 8.8 gm/dl (11.8-15.2); Lymphocytes # (Auto) 0.9 K/mm3 (1.2-5.4); Lymphocytes % (Auto) 13.2 % (13.4-35.0); Mean Corpuscular HGB Conc 32 % (32-34); Mean Corpuscular Volume 78 fl (84-94); Monocytes # (Auto) 0.2 K/mm3 (0.0-0.8); Monocytes % (Auto) 2.2 % (0.0-7.3); Platelet Count 197 K/mm3 (140-440); Red Blood Count 3.52 M/mm3 (3.65-5.03); Red Cell Distribution Width 19.6 % (13.2-15.2)
[2021-07-01 17:27] LABS: INR 0.92 (0.87-1.13)
[2021-07-01 17:28] LABS: Partial Thromboplastin Time 31.5 Sec. (24.2-36.6)
[2021-07-01 17:29] LABS: Albumin 3.6 g/dL (3.9-5); Calcium 6.6 mg/dL (8.4-10.2)
[2021-07-01 17:41] LABS: Chol/HDL Ratio 2.67 %
== END 2021-07-02 08:12 ==
LOC: ED 14:36
DX: R53.83 Other fatigue (principal); Z99.2 Dependence on renal dialysis; Z53.21 Procedure and treatment not carried out due to patient leaving prior to being seen by health care provider
CPT/HCPCS: 36415; 80053; 80061; 84484; 85025; 85610; 85730